=== PATIENT | male | born 1940 | race Caucasian/White ===

== ENCOUNTER → 2017-12-12 | Outpatient (CLI) | payer MEDICARE ==
[~2017-12-12] MED LIST: AMLO5TAB7 PO; ASPI-1181 PO; HYDR25TA PO; LISI40TA4 PO; METF500T7 PO; NAPR-1023 PO; SIMV20TA6 PO
== END | disposition home or self-care (01) ==
LOC: SHCH 12:17
PROVIDERS: ATTEND Internal Medicine Cardiovascular Disease
DX: I10 Essential (primary) hypertension (principal); Z72.89 Other problems related to lifestyle
CPT/HCPCS: 93306

== ENCOUNTER → 2017-12-19 | Outpatient (CLI) | payer MEDICARE ==
[~2017-12-19] VITALS: Ht 172.7 cm; Wt 90.7 kg
[~2017-12-19] MED LIST changes: +REGADENOSON 0.4 MG/5 ML PF SYG IVP SCH
== END | disposition home or self-care (01) ==
LOC: SHCH 08:55
PROVIDERS: ATTEND Internal Medicine Cardiovascular Disease
DX: I10 Essential (primary) hypertension (principal); R94.31 Abnormal electrocardiogram [ECG] [EKG]
CPT/HCPCS: 78452; 93017; 96374; A9500 ×2; J2785

== ENCOUNTER 2018-01-21 05:52 | Observation (INO) | payer MEDICARE ==
[2018-01-16 16:16] LABS: BASOPHILS % (AUTO) 0.8 % (0.0-5.0); EOSINOPHILS % (AUTO) 0.9 % (0.0-8.0); HEMATOCRIT 43.9 % (42-54); MEAN CORPUSCULAR HEMOGLOBIN 30.2 pg (27.0-33.0); MEAN CORPUSCULAR VOLUME 88.7 fL (79-99); MONOCYTES % (AUTO) 13.8 % (3.0-13.0); NEUTROPHILS % (AUTO) 55.5 % (40.0-77.0); NUCLEATED RED BLOOD CELLS 0.1 % (0.0-0.19); PLATELET COUNT (AUTO) 209 K/uL (130-400); RED BLOOD CELL COUNT(AUTO) 4.94 MIL/uL (4.50-6.20); RED CELL DISTRIBUTION WIDTH 14.2 % (11.0-15.5); WHITE BLOOD COUNT (AUTO) 7.8 K/uL (4.8-10.8)
[2018-01-16 16:16] LABS: APPEARANCE,URINE Clear (CLEAR); BILIRUBIN,URINE Negative (NEGATIVE); COLOR,URINE Yellow (YELLOW); GLUCOSE, URINE (UA) Negative (NEGATIVE); KETONES,URINE Negative (NEGATIVE); LEUKOCYTE ESTERASE ,URINE Negative (NEGATIVE); NITRATE,URINE Negative (NEGATIVE); OCCULT BLOOD,URINE Negative (NEGATIVE); PROTEIN,URINE Negative (NEGATIVE)
[2018-01-16 16:30] VITALS: BP 149/69
[2018-01-16 16:32] LABS: POTASSIUM 3.6 mmol/L (3.5-5.1)
[2018-01-16 16:35] LABS: INR 0.99 (0.85-1.15); PARTIAL THROMBOPLASTIN TIME 26.8 SEC (26.3-35.5); PROTHROMBIN TIME 10.4 SEC (9.6-11.6)
[2018-01-21] VITALS (18 sets, daily range): BP systolic 129–162; BP diastolic 56–72
[~2018-01-21] VITALS: Ht 175.3 cm; Wt 88.2 kg
[~2018-01-21 05:52] MED LIST changes: +CYAN500 PO; -NAPR-1023 PO; -REGADENOSON 0.4 MG/5 ML PF SYG IVP SCH; +SODIUM CHLORIDE 0.9% 500ML 500 ML IV SCH; +TYLENOL ER PO
[2018-01-21] MEDS ORDERED: SODIUM CHLORIDE 0.9% 1000ML 1,000 ML IV ONE (06:15)
[2018-01-21] MEDS ORDERED: IOHEXOL 350 MG/ML 100ML INFUS..BTL IV ONE ×2 (07:09→08:12)
[2018-01-21] MEDS ORDERED: SODIUM BICARB 50MEQ 50ML VIAL ONE (07:09)
[2018-01-21] MEDS ORDERED: NITROGLYCERIN 5 MG/ML 10 ML VIAL IV ONE (07:09)
[2018-01-21] MEDS ORDERED: LIDOCAINE HCL-MPF 2% 5ML VIAL ONE (07:09)
[2018-01-21] MEDS ORDERED: IOHEXOL-350 50ML VIAL IV ONE (07:09)
[2018-01-21] MEDS ORDERED: HEPARIN SODIUM 1000UNIT/ML 10ML VIAL ONE (07:59)
[2018-01-21] MEDS ORDERED: ATROPINE SULFATE 0.1 MG/ML 10 ML SYG IVP ONE (07:59)
[2018-01-21] MEDS ORDERED: CLOPIDOGREL BISULFATE 300 MG TAB ONE (09:22)
[2018-01-21] MEDS ORDERED: SODIUM CHLORIDE 0.9% 1000ML 1,000 ML IV SCH (09:49)
[2018-01-21] MEDS ORDERED: ACETAMINOPHEN-CODEINE 300/30MG TAB PO PRN (10:00)
[2018-01-21] MEDS ORDERED: GLUCAGON 1MG KIT 1 MG ML IM PRN (10:00)
[2018-01-21] MEDS ORDERED: ACETAMINOPHEN 325 MG TAB PO PRN (10:00)
[2018-01-21] MEDS ORDERED: DEXTROSE 50%-WATER 50 ML DISP.SYRIN IV PRN (10:00)
[2018-01-21] MEDS: INSULIN HUMULIN R 100 UNIT/ML 3ML SQ SCH ×3 (11:30→21:00)
[2018-01-22 02:48] VITALS: BP 138/66
[2018-01-22 04:00] VITALS: BP 150/66
[2018-01-22 04:02] LABS: HEMATOCRIT 42.1 % (42-54); MEAN CORPUSCULAR HEMOGLOBIN 30.3 pg (27.0-33.0); MEAN CORPUSCULAR HGB CONC 34.1 g/dL (32.0-36.0); MEAN CORPUSCULAR VOLUME 88.7 fL (79-99); NUCLEATED RED BLOOD CELLS 0.1 % (0.0-0.19); PLATELET COUNT (AUTO) 194 K/uL (130-400); RED BLOOD CELL COUNT(AUTO) 4.74 MIL/uL (4.50-6.20); RED CELL DISTRIBUTION WIDTH 13.9 % (11.0-15.5); WHITE BLOOD COUNT (AUTO) 8.5 K/uL (4.8-10.8)
[2018-01-22 04:04] LABS: HEMOGLOBIN A1C 6.6 % (4.0-6.0)
[2018-01-22 04:14] LABS: CREATININE 1.1 mg/dL (0.5-1.5); POTASSIUM 3.3 mmol/L (3.5-5.1)
[2018-01-22] MEDS ORDERED: MAGNESIUM 2GM PREMIX 50ML 50 ML IV PRN (05:45)
[2018-01-22] MEDS ORDERED: POTASSIUM CHLORIDE 20MEQ/100ML 100 ML IV PRN (05:45)
[2018-01-22] MEDS ORDERED: POTASSIUM CHLORIDE 10% ELIXIR 20 MEQ/15 ML UDCUP PO PRN (05:45)
[2018-01-22] MEDS ORDERED: LIDOCAINE HCL-MPF 1% 2ML VIAL IVP PRN (05:45)
[2018-01-22] MEDS: INSULIN HUMULIN R 100 UNIT/ML 3ML SQ SCH ×2 (07:30→11:30)
[2018-01-22] MEDS: POTASSIUM CHLORIDE 20 MEQ ERTAB PO PRN ×2 (07:39→13:21)
[2018-01-22 08:00] VITALS: BP 159/74
[2018-01-22] MEDS ORDERED: CLOP75TA14 PO (08:17)
[2018-01-22] MEDS ORDERED: CYANOCOBALAMIN (VITAMIN B-12) 1,000 MCG TABLET PO SCH (09:00)
[2018-01-22] MEDS ORDERED: HYDROCHLOROTHIAZIDE 25 MG TABLET PO SCH (09:00)
[2018-01-22] MEDS ORDERED: ASPIRIN 81 MG EC TAB PO SCH (09:00)
[2018-01-22] MEDS ORDERED: AMLODIPINE BESYLATE 5 MG TAB PO SCH (09:00)
[2018-01-22] MEDS ORDERED: PANTOPRAZOLE SODIUM 40 MG TABLET.DR PO SCH (09:00)
[2018-01-22] MEDS ORDERED: LISINOPRIL 40 MG TABLET PO SCH (09:00)
[2018-01-22] MEDS ORDERED: CLOPIDOGREL BISULFATE 75 MG TAB PO SCH (09:00)
[2018-01-22] MEDS ORDERED: SIMVASTATIN 20 MG TABLET PO SCH (09:00)
[2018-01-22 12:09] VITALS: BP 142/65
== END 2018-01-22 15:24 | disposition home or self-care (01) ==
LOC: DAH 05:52 → DAHIP 05:53 → DAH 05:53 → 2DH 14:38
PROVIDERS: ADMIT Internal Medicine Cardiovascular Disease; ATTEND Internal Medicine Cardiovascular Disease
DX: I25.110 Atherosclerotic heart disease of native coronary artery with unstable angina pectoris (principal); I10 Essential (primary) hypertension; E11.9 Type 2 diabetes mellitus without complications; E78.5 Hyperlipidemia, unspecified; M19.90 Unspecified osteoarthritis, unspecified site; F03.90 Unspecified dementia, unspecified severity, without behavioral disturbance, psychotic disturbance, mood disturbance, and anxiety; Z82.3 Family history of stroke; Z87.891 Personal history of nicotine dependence; Z79.01 Long term (current) use of anticoagulants
CPT/HCPCS: 36415 ×3; 71045; 80048 ×2; 80061; 81003; 82948 ×6; 83036; 83735; 85025; 85027; 85347 ×2; 85610; 85730; 93005; 93458; 96372; A4606; C1725; C1760; C1769 ×3; C1874 ×4; C1887 ×3; C1894 ×2; C9600 ×3; G0378 ×34; J1644 ×2; J1815; J3490 ×3; J7030 ×3; Q9965 ×2; Q9967 ×3; J0461

== ENCOUNTER 2018-01-26 07:38 | Observation (INO) | payer MEDICARE ==
[~2018-01-26] VITALS: Ht 172.7 cm; Wt 91.7 kg
[~2018-01-26 07:38] MED LIST changes: +CLOP75TA14 PO; -SODIUM CHLORIDE 0.9% 500ML 500 ML IV SCH
[2018-01-26 08:16] LABS: CREATININE 1.1 mg/dL (0.5-1.5); POTASSIUM 3.4 mmol/L (3.5-5.1)
[2018-01-26 08:22] LABS: ALBUMIN 3.5 g/dL (3.5-5.0); BILIRUBIN,TOTAL 0.5 mg/dL (0.2-1.0); TOTAL PROTEIN, SERUM 6.6 g/dL (6.0-8.3)
[2018-01-26 10:45] VITALS: BP 146/57
[2018-01-26 12:13] LABS: BASOPHILS % (AUTO) 0.8 % (0.0-5.0); EOSINOPHILS % (AUTO) 2.2 % (0.0-8.0); HEMATOCRIT 41.8 % (42-54); LYMPHOCYTES % (AUTO) 25.1 % (21.0-51.0); MEAN CORPUSCULAR HEMOGLOBIN 30.8 pg (27.0-33.0); MEAN CORPUSCULAR HGB CONC 34.6 g/dL (32.0-36.0); MEAN CORPUSCULAR VOLUME 89.1 fL (79-99); MONOCYTES % (AUTO) 10.5 % (3.0-13.0); NEUTROPHILS % (AUTO) 61.4 % (40.0-77.0); PLATELET COUNT (AUTO) 202 K/uL (130-400); RED BLOOD CELL COUNT(AUTO) 4.69 MIL/uL (4.50-6.20); RED CELL DISTRIBUTION WIDTH 13.8 % (11.0-15.5); WHITE BLOOD COUNT (AUTO) 6.8 K/uL (4.8-10.8)
[2018-01-26 15:14] LABS: CREATINE KINASE, TOTAL 32 U/L (21-232); MYOGLOBIN 46 ng/mL (10-92); TROPONIN I < 0.04 ng/mL (0.00-0.06)
[2018-01-26 15:37] VITALS: BP 164/63
[2018-01-26 20:00] VITALS: BP 149/70
[2018-01-26] MEDS ORDERED: ACETAMINOPHEN EXTENDED RELEASE 650 MG TABLET PO PRN (21:00)
[2018-01-26] MEDS: METFORMIN HCL 500 MG TAB.SR.24H PO SCH (21:46)
[2018-01-26 21:56] LABS: CREATINE KINASE, TOTAL 32 U/L (21-232); MYOGLOBIN 34 ng/mL (10-92); TROPONIN I < 0.04 ng/mL (0.00-0.06)
[2018-01-27] VITALS: BP 142/56
[2018-01-27 04:00] VITALS: BP 130/59
[2018-01-27 08:21] VITALS: BP 129/58
[2018-01-27] MEDS ORDERED: AMLODIPINE BESYLATE 5 MG TAB PO SCH (09:00)
[2018-01-27] MEDS ORDERED: HYDROCHLOROTHIAZIDE 25 MG TABLET PO SCH (09:00)
[2018-01-27] MEDS ORDERED: ASPIRIN 81MG TAB.CHEW PO SCH (09:00)
[2018-01-27] MEDS ORDERED: SIMVASTATIN 20 MG TABLET PO SCH (09:00)
[2018-01-27] MEDS ORDERED: CYANOCOBALAMIN (VITAMIN B-12) 1,000 MCG TABLET PO SCH (09:00)
[2018-01-27] MEDS ORDERED: CLOPIDOGREL BISULFATE 75 MG TAB PO SCH (09:00)
[2018-01-27] MEDS ORDERED: LISINOPRIL 40 MG TABLET PO SCH (09:00)
[2018-01-27] MEDS: METFORMIN HCL 500 MG TAB.SR.24H PO SCH (09:56)
[2018-01-27 12:16] VITALS: BP 135/65
== END 2018-01-27 12:35 | disposition home or self-care (01) ==
LOC: EDH 07:38 → 3CH 09:52
PROVIDERS: ADMIT Internal Medicine; ATTEND Internal Medicine
DX: R07.89 Other chest pain (principal); I25.10 Atherosclerotic heart disease of native coronary artery without angina pectoris; E11.9 Type 2 diabetes mellitus without complications; E78.5 Hyperlipidemia, unspecified; I10 Essential (primary) hypertension; Z87.891 Personal history of nicotine dependence; Z95.5 Presence of coronary angioplasty implant and graft
CPT/HCPCS: 36415; 71045; 80053; 82550 ×3; 82948 ×5; 83874 ×2; 83880; 84484 ×3; 85025; 93005; 99285; G0378 ×27

== ENCOUNTER 2018-04-22 07:37 | Inpatient (IN) | payer MEDICARE ==
[~2018-04-22] VITALS: Ht 172.7 cm; Wt 92.3 kg
[~2018-04-22 07:37] MED LIST changes: -AMLO5TAB7 PO; +AMLO5TAB9 PO
[2018-04-22 08:01] LABS: BASOPHILS % (AUTO) 0.7 % (0.0-5.0); EOSINOPHILS % (AUTO) 0.3 % (0.0-8.0); HEMATOCRIT 38.1 % (42-54); LYMPHOCYTES % (AUTO) 12.2 % (21.0-51.0); MEAN CORPUSCULAR HEMOGLOBIN 28.7 pg (27.0-33.0); MEAN CORPUSCULAR HGB CONC 32.4 g/dL (32.0-36.0); MEAN CORPUSCULAR VOLUME 88.7 fL (79-99); NEUTROPHILS % (AUTO) 75.8 % (40.0-77.0); PLATELET COUNT (AUTO) 218 K/uL (130-400); RED CELL DISTRIBUTION WIDTH 14.4 % (11.0-15.5); WHITE BLOOD COUNT (AUTO) 11.7 K/uL (4.8-10.8)
[2018-04-22 08:16] LABS: ALBUMIN 2.7 g/dL (3.5-5.0); BILIRUBIN,TOTAL 0.6 mg/dL (0.2-1.0); CREATININE 2.3 mg/dL (0.5-1.5); POTASSIUM 4.1 mmol/L (3.5-5.1); TOTAL PROTEIN, SERUM 5.9 g/dL (6.0-8.3)
[2018-04-22 08:24] LABS: B-TYPE NATRIURETIC PEPTIDE 41 pg/mL (0-100)
[2018-04-22] MEDS ORDERED: CALCIUM CHLORIDE 100 MG/ML 10 ML SYG IVP ONE (12:00)
[2018-04-22] MEDS ORDERED: EPINEPHRINE 0.1 MG/ML 10 ML SYG IVP ONE (12:00)
[2018-04-22 18:35] VITALS: BP 91/61
[2018-04-22] MEDS ORDERED: ACET-2782 PO (19:44)
[2018-04-22] MEDS ORDERED: CYAN50008 PO (19:44)
[2018-04-22] MEDS ORDERED: AMLO10TA7 PO (19:44)
[2018-04-22] MEDS ORDERED: ATOR40TA69 PO (19:44)
[2018-04-22] MEDS ORDERED: ACETAMINOPHEN EXTENDED RELEASE 650 MG TABLET PO PRN (20:15)
[2018-04-22] MEDS: 1/2 NORMAL SALINE 1,000 ML IV SCH (20:57)
[2018-04-22] MEDS ORDERED: METFORMIN HCL 500 MG TAB.SR.24H PO SCH (21:00)
[2018-04-22 23:00] VITALS: BP 109/47
[2018-04-23 01:14] LABS: APPEARANCE,URINE Cloudy (CLEAR); BILIRUBIN,URINE Negative (NEGATIVE); COLOR,URINE Yellow (YELLOW); GLUCOSE, URINE (UA) Negative (NEGATIVE); KETONES,URINE Negative (NEGATIVE); LEUKOCYTE ESTERASE ,URINE Moderate (NEGATIVE); NITRATE,URINE Negative (NEGATIVE); OCCULT BLOOD,URINE Large (NEGATIVE); PROTEIN,URINE Trace (NEGATIVE); UROBILINOGEN,URINE 0.2 mg/dL (0.2-1.0)
[2018-04-23 01:28] LABS: BACTERIA,URINE Few /HPF (None Seen); SQUAMOUS EPITHELIAL CELL,UR Rare /HPF (0-2)
[2018-04-23 01:29] LABS: AMORPHOUS SEDIMENT,UR Rare /LPF (None Seen); HYALINE CASTS, URINE 0-1 /LPF (0-1 /LPF)
[2018-04-23 03:00] VITALS: BP 100/47
[2018-04-23 05:28] LABS: HEMATOCRIT 34.9 % (42-54); MEAN CORPUSCULAR HEMOGLOBIN 29.5 pg (27.0-33.0); MEAN CORPUSCULAR HGB CONC 33.1 g/dL (32.0-36.0); MEAN CORPUSCULAR VOLUME 89.2 fL (79-99); NUCLEATED RED BLOOD CELLS 0.2 % (0.0-0.19); PLATELET COUNT (AUTO) 192 K/uL (130-400); RED BLOOD CELL COUNT(AUTO) 3.92 MIL/uL (4.50-6.20); RED CELL DISTRIBUTION WIDTH 14.5 % (11.0-15.5); WHITE BLOOD COUNT (AUTO) 8.9 K/uL (4.8-10.8)
[2018-04-23 05:56] LABS: CREATININE 2.6 mg/dL (0.5-1.5); MAGNESIUM 2.1 mg/dL (1.80-2.40); PHOSPHORUS 6.4 mg/dL (2.5-4.9); POTASSIUM 4.1 mmol/L (3.5-5.1); THYROID STIMULATING HORMONE 2.43 uIU/mL (0.36-3.74); URIC ACID 17.2 mg/dL (2.6-7.2)
[2018-04-23] MEDS ORDERED: GLUCAGON 1MG KIT 1 MG ML IM PRN (06:30)
[2018-04-23] MEDS ORDERED: DEXTROSE 50%-WATER 50 ML DISP.SYRIN IV PRN (06:30)
[2018-04-23] MEDS: 1/2 NORMAL SALINE 1,000 ML IV SCH ×3 (06:40→17:55)
[2018-04-23] MEDS: INSULIN HUMULIN R 100 UNIT/ML 3ML SQ SCH ×4 (06:41→21:00)
[2018-04-23 07:00] VITALS: BP 102/40
--- NOTE | 2018-04-23 07:50 | NUR ---
PATIENT IS ALERT AND AWAKE, DENIES ANY PAIN UPON ASSESSMENT. POC DISCUSSED WITH PATIENT, SAFETY AND FALL PREVENTION REVIEWED.
[2018-04-23] MEDS ORDERED: NON-FORMULARY MEDICATION 1 EACH (Amlodipine Besylate 10 MG) PO SCH (09:00)
[2018-04-23] MEDS ORDERED: ENOXAPARIN SODIUM 40 MG/0.4 ML SYRINGE SQ SCH (09:00)
[2018-04-23] MEDS: ASPIRIN 81 MG EC TAB PO SCH (09:04)
[2018-04-23] MEDS: CYANOCOBALAMIN (VITAMIN B-12) 1,000 MCG TABLET PO SCH (09:04)
[2018-04-23] MEDS: FOLIC ACID/VITAMIN B COMP W-C 1 MG CAPSULE PO SCH (09:05)
[2018-04-23] MEDS: ATORVASTATIN CALCIUM 40 MG TABLET PO SCH (09:05)
[2018-04-23] MEDS: CLOPIDOGREL BISULFATE 75 MG TAB PO SCH (09:05)
[2018-04-23] MEDS ORDERED: SODIUM CHLORIDE 0.9% 10 ML VIAL IVP PRN (10:00)
--- NOTE | 2018-04-23 10:43 | NUR ---
DR SOLER AND THE WAITER/WAITRESS INFORMAL CAME IN TO SEE THE PATIENT IN RESPONSE TO THE CONSULT. NO NEW ORDERS WERE GIVEN.
[2018-04-23 11:00] VITALS: BP 88/49
[2018-04-23 12:50] VITALS: BP 92/51
--- NOTE | 2018-04-23 12:50 | NUR ---
HYPOTENSIVE EPISODE RECORDED BP 88/49. LOWER EXTREMITIES WERE ELEVATED ABOVE HEART LEVEL AND BP RECHECK WAS 92/51 WITH HR 70BPM.
--- NOTE | 2018-04-23 12:55 | NUR ---
DCP CM met with pt discussed dc plans. Pt is independent prior to admissoin, lives at home with spouse. Pt has a cpap and shower chair. Denies any other equipments/services. Pt feels safe to go back home, still drives, spouse able to assist with transportation and needs as necessary. DC plan to home once stable. CM to cont to follow up. Addendum: 04/23/18 at 1257 by REYNA RUSSELL LVN CM Amended: Links added.
--- NOTE | 2018-04-23 15:20 | NUR ---
Nutrition intervention: Nutrition notification as trigger. Pt admitted for dehydration, prerenal azotemia. Pt currently on renal non dialysis diet with poor to fair po intake. Pt states he is forcing himself to eat however cannot get himself to eat more than liquids and soft foods. Encouraged pt to drink nutrition supplementation, pt agrees to nepro BID. Lbm 04/23. Alb 2.7. BMI 30.0 Recommendations: Continue current diet therapy. Add Nepro BID for added caloric and protein intake Addendum: 04/23/18 at [address] Amended: Links added.
[2018-04-23 16:00] VITALS: BP 101/54
[2018-04-23 20:00] VITALS: BP 112/60
[2018-04-24] VITALS (24 sets, daily range): BP systolic 76–145; BP diastolic 32–54
[2018-04-24] MEDS: 1/2 NORMAL SALINE 1,000 ML IV SCH ×3 (00:38→23:01)
[2018-04-24 05:46] LABS: HEMATOCRIT 34.9 % (42-54); MEAN CORPUSCULAR HEMOGLOBIN 29.4 pg (27.0-33.0); MEAN CORPUSCULAR HGB CONC 33.5 g/dL (32.0-36.0); NUCLEATED RED BLOOD CELLS 0.1 % (0.0-0.19); PLATELET COUNT (AUTO) 183 K/uL (130-400); RED BLOOD CELL COUNT(AUTO) 3.97 MIL/uL (4.50-6.20); RED CELL DISTRIBUTION WIDTH 14.5 % (11.0-15.5); WHITE BLOOD COUNT (AUTO) 8.6 K/uL (4.8-10.8)
[2018-04-24 06:07] LABS: ALBUMIN 2.5 g/dL (3.5-5.0); BILIRUBIN,TOTAL 0.5 mg/dL (0.2-1.0); CREATININE 2.7 mg/dL (0.5-1.5); POTASSIUM 3.9 mmol/L (3.5-5.1); TOTAL PROTEIN, SERUM 5.3 g/dL (6.0-8.3)
[2018-04-24] MEDS: INSULIN HUMULIN R 100 UNIT/ML 3ML SQ SCH ×4 (06:18→20:15)
[2018-04-24] MEDS ORDERED: HYDROCODONE/ACETAMINOPHEN 5/325 MG TAB ONE (06:48)
[2018-04-24] MEDS: HYDROCODONE/ACETAMINOPHEN 5/325 MG TAB PO PRN ×2 (07:04→15:27)
--- NOTE | 2018-04-24 10:16 | NUR ---
NOTIFIED RONDA BRENNER OF 2DECHO DONE. REPORTED BP LYING DOWN=92/52 MANUALLY. ORDERS TO TRANSFER TO UNIT.
[2018-04-24] MEDS: ATORVASTATIN CALCIUM 40 MG TABLET PO SCH (10:34)
[2018-04-24] MEDS: FOLIC ACID/VITAMIN B COMP W-C 1 MG CAPSULE PO SCH (10:34)
[2018-04-24] MEDS: CYANOCOBALAMIN (VITAMIN B-12) 1,000 MCG TABLET PO SCH (10:34)
[2018-04-24] MEDS: ASPIRIN 81 MG EC TAB PO SCH (10:34)
[2018-04-24] MEDS: CLOPIDOGREL BISULFATE 75 MG TAB PO SCH (10:34)
[2018-04-24] MEDS ORDERED: BACITRACIN 50,000 UNIT VIAL ONE (11:49)
[2018-04-24] MEDS ORDERED: KETAMINE HCL 100 MG/ML 5ML VIAL IJ ONE (12:11)
[2018-04-24] MEDS ORDERED: SODIUM CHLORIDE 0.9% 1000ML 1,000 ML IV ONE (12:23)
[2018-04-24] MEDS: CEFAZOLIN SODIUM 1 GM VIAL ONE ×2 (12:33→12:35)
[2018-04-24] MEDS ORDERED: SUCCINYLCHOLINE 200MG/10ML SYR ONE (12:39)
[2018-04-24] MEDS ORDERED: ROCURONIUM 10MG/1ML SYR 10 MG/ML ML ONE (12:52)
[2018-04-24] MEDS ORDERED: MIDAZOLAM HCL 1 MG/ML 2ML VIAL ONE (12:52)
[2018-04-24] MEDS ORDERED: FENTANYL CITRATE PF 50 MCG/1 ML 2ML VIAL ONE (12:52)
[2018-04-24] MEDS ORDERED: GLYCOPYRROLATE 1 MG/5 ML SYRINGE ONE ×2 (13:08→13:53)
[2018-04-24] MEDS ORDERED: NEOSTIGMINE 5MG/5ML SYR IV ONE (13:08)
[2018-04-24] MEDS ORDERED: DIGOXIN 250 MCG/ML 2ML AMP ONE (13:23)
[2018-04-24 13:31] LABS: ABG BASE EXCESS -10.7 mmol/L (-2.0-3.0); ABG HCO3 18.9 mmol/L (21.0-28.0); ABG OXYGEN SATURATION 91.1 % (95.0-99.0); ABG PCO2 60 mmHg (35-48)
[2018-04-24] MEDS ORDERED: AMIODARONE HCL 50 MG/ML 3 ML VIAL ONE (13:40)
[2018-04-24] MEDS ORDERED: ATROPINE SULFATE 0.1 MG/ML 10 ML SYG IVP ONE (13:51)
[2018-04-24] MEDS ORDERED: AMIODARONE HCL 900 MG in DEXTROSE 5%-WATER 500 ML IV SCH (14:00)
[2018-04-24] MEDS ORDERED: MEPERIDINE-PF 50 MG/ML SYG ONE (14:14)
[2018-04-24 16:11] LABS: PH, BODY FLUID 8
[2018-04-24 16:22] LABS: AMYLASE,BODY FLUID 6 U/L; LIPASE,BODY FLUID 56 U/L
[2018-04-24 17:02] LABS: APPEARANCE BODY FLUID CLOUDY (CLEAR); COLOR,BODY FLUID RED (LT YELLOW); SPECIMENTYPE,BODY FLUID PERICARDIAL; TOTAL VOLUME,BODY FLUID 13 mL
[2018-04-24 17:03] LABS: BODY FLUID RBC 121000 /cu. mm.; BODY FLUID WBC 619 /cu. mm.
[2018-04-24 17:08] LABS: BF LYMPHOCYTE 78 %; BF OTHER CELLS 2
--- NOTE | 2018-04-24 20:00 | NUR ---
PM assessment. Bedside report received by JEWELS Bansal. Plan of care discussed with patient. Patient is alert awake and oriented x4. Reports no complaint. Patient is resting comfortably in bed. Pericardial window dressing intact and chest tube to [id number] continues suction without any abnormalities. Full head to toe assessment done-Refer to chart for assessment. Will continue to monitor patient closely.
--- NOTE | 2018-04-24 22:15 | NUR ---
Dr. Simmons called. at 2200 patient blood pressure decreased to systolic 70's-80's. while this was occurring patient started to complain of Chest pain radiating to right shoulder and jaw line. EKG was done and cardiac enzymes as well as other lab were order. Dr. Simmons was updated and ordered Yohan-synephrine drip to be started. all lab result were relayed to Dr. simmons. no further orders were received, and will se patient AM. Will continue to monitor patient closely.
[2018-04-24 22:38] LABS: BASOPHILS % (AUTO) 0.4 % (0.0-5.0); EOSINOPHILS % (AUTO) 0.1 % (0.0-8.0); HEMATOCRIT 34.6 % (42-54); MEAN CORPUSCULAR HEMOGLOBIN 29.6 pg (27.0-33.0); MEAN CORPUSCULAR HGB CONC 33.8 g/dL (32.0-36.0); MEAN CORPUSCULAR VOLUME 87.6 fL (79-99); MONOCYTES % (AUTO) 10.3 % (3.0-13.0); NEUTROPHILS % (AUTO) 83.2 % (40.0-77.0); PLATELET COUNT (AUTO) 176 K/uL (130-400); RED BLOOD CELL COUNT(AUTO) 3.95 MIL/uL (4.50-6.20); RED CELL DISTRIBUTION WIDTH 14.4 % (11.0-15.5); WHITE BLOOD COUNT (AUTO) 10.7 K/uL (4.8-10.8)
[2018-04-24] MEDS ORDERED: PHENYLEPHRINE HCL 10 MG/ML 1ML VIAL IV ONE (22:38)
[2018-04-24] MEDS ORDERED: PHENYLEPHRINE HCL 10 MG in SODIUM CHLORIDE 0.9% 250 ML IV SCH (22:45)
[2018-04-24 22:52] LABS: CREATININE 2.6 mg/dL (0.5-1.5); MAGNESIUM 1.8 mg/dL (1.80-2.40); POTASSIUM 4.4 mmol/L (3.5-5.1)
--- NOTE | 2018-04-24 23:00 | NUR ---
Dr. Greenfield called. Dr. Greenfield was updated on patient current condition and elevated troponin results as well as EKG. No orders were received. Will continue to monitor patient closely.
[2018-04-24 23:01] LABS: TROPONIN I 0.15 ng/mL (0.00-0.06)
[2018-04-25] VITALS (24 sets, daily range): BP systolic 95–132; BP diastolic 35–63
[2018-04-25] MEDS ORDERED: PHENYLEPHRINE HCL 10 MG/ML 1ML VIAL IV ONE ×2 (01:26→04:20)
[2018-04-25] MEDS ORDERED: SODIUM CHLORIDE 0.9% 250 ML IV ONE ×2 (01:28→04:21)
[2018-04-25] MEDS ORDERED: NITROGLYCERIN 1GM/1 INCH PACKET TD ONE (01:36)
[2018-04-25] MEDS: HYDROCODONE/ACETAMINOPHEN 5/325 MG TAB PO PRN ×3 (01:54→14:43)
[2018-04-25] MEDS: NITROGLYCERIN 1GM/1 INCH PACKET TD SCH ×2 (02:00→19:34)
[2018-04-25 03:54] LABS: HEMATOCRIT 34.5 % (42-54); MEAN CORPUSCULAR HEMOGLOBIN 30.5 pg (27.0-33.0); MEAN CORPUSCULAR VOLUME 87.3 fL (79-99); PLATELET COUNT (AUTO) 226 K/uL (130-400); RED BLOOD CELL COUNT(AUTO) 3.96 MIL/uL (4.50-6.20); RED CELL DISTRIBUTION WIDTH 14.2 % (11.0-15.5); WHITE BLOOD COUNT (AUTO) 9.7 K/uL (4.8-10.8)
[2018-04-25 04:08] LABS: CREATININE 2.5 mg/dL (0.5-1.5); POTASSIUM 4.3 mmol/L (3.5-5.1)
[2018-04-25 04:59] LABS: BAND NEUTROPHILS % (MANUAL) 9 % (0-2); LYMPHOCYTES % (MANUAL) 5 % (22-44); MAN.DIFF COMMENT-IMPRESSION MANUAL DIFFERENTIAL; MONOCYTES % (MANUAL) 9 % (2-9); REACTIVE LYMPHOCYTES 4 % (0-0); SEGMENTED NEUTROPHILS % 73 % (40-70)
[2018-04-25 05:47] LABS: TROPONIN I 0.1 ng/mL (0.00-0.06)
[2018-04-25] MEDS ORDERED: MAGNESIUM 2GM PREMIX 50ML 50 ML IV ONE (05:49)
[2018-04-25] MEDS ORDERED: MAGNESIUM 2GM PREMIX 50ML 50 ML IV PRN (06:00)
[2018-04-25] MEDS: INSULIN HUMULIN R 100 UNIT/ML 3ML SQ SCH ×4 (07:13→21:00)
[2018-04-25] MEDS: ATORVASTATIN CALCIUM 40 MG TABLET PO SCH (08:50)
[2018-04-25] MEDS: CYANOCOBALAMIN (VITAMIN B-12) 1,000 MCG TABLET PO SCH (08:50)
[2018-04-25] MEDS: FOLIC ACID/VITAMIN B COMP W-C 1 MG CAPSULE PO SCH (08:50)
[2018-04-25] MEDS: ASPIRIN 81 MG EC TAB PO SCH (08:50)
[2018-04-25] MEDS: CLOPIDOGREL BISULFATE 75 MG TAB PO SCH (08:50)
[2018-04-25] MEDS: 1/2 NORMAL SALINE 1,000 ML IV SCH ×2 (08:57→17:48)
--- NOTE | 2018-04-25 20:00 | NUR ---
Assumed care of patient after report received earlier. Awake. Alert and oriented.Denies pain, sob. Initial assessment completed. Call light and needed items placed readily at hand. Encouraged to call prn.
[2018-04-26] VITALS (59 sets, daily range): BP systolic 86–148; BP diastolic 38–84
[2018-04-26] MEDS ORDERED: PHENYLEPHRINE HCL 10 MG/ML 1ML VIAL IV ONE (00:07)
[2018-04-26] MEDS ORDERED: SODIUM CHLORIDE 0.9% 250 ML IV ONE (00:08)
[2018-04-26] MEDS: 1/2 NORMAL SALINE 1,000 ML IV SCH (04:35)
[2018-04-26 05:59] LABS: EOSINOPHILS % (AUTO) 1.2 % (0.0-8.0); HEMATOCRIT 33.8 % (42-54); LYMPHOCYTES % (AUTO) 14.7 % (21.0-51.0); MEAN CORPUSCULAR HEMOGLOBIN 29.2 pg (27.0-33.0); MEAN CORPUSCULAR HGB CONC 33.2 g/dL (32.0-36.0); MEAN CORPUSCULAR VOLUME 87.9 fL (79-99); MONOCYTES % (AUTO) 13.5 % (3.0-13.0); NEUTROPHILS % (AUTO) 69.6 % (40.0-77.0); NUCLEATED RED BLOOD CELLS 0.1 % (0.0-0.19); PLATELET COUNT (AUTO) 170 K/uL (130-400); RED BLOOD CELL COUNT(AUTO) 3.85 MIL/uL (4.50-6.20); RED CELL DISTRIBUTION WIDTH 14.8 % (11.0-15.5); WHITE BLOOD COUNT (AUTO) 7.8 K/uL (4.8-10.8)
[2018-04-26 06:12] LABS: CREATININE 1.6 mg/dL (0.5-1.5); POTASSIUM 3.8 mmol/L (3.5-5.1)
[2018-04-26] MEDS: INSULIN HUMULIN R 100 UNIT/ML 3ML SQ SCH ×4 (06:30→21:00)
[2018-04-26] MEDS: ASPIRIN 81 MG EC TAB PO SCH (09:29)
[2018-04-26] MEDS: ATORVASTATIN CALCIUM 40 MG TABLET PO SCH (09:29)
[2018-04-26] MEDS: FOLIC ACID/VITAMIN B COMP W-C 1 MG CAPSULE PO SCH (09:29)
[2018-04-26] MEDS: CLOPIDOGREL BISULFATE 75 MG TAB PO SCH (09:29)
[2018-04-26] MEDS: CYANOCOBALAMIN (VITAMIN B-12) 1,000 MCG TABLET PO SCH (09:30)
[2018-04-26] MEDS: SODIUM CHLORIDE 0.9% 1000ML 1,000 ML IV SCH (10:12)
--- NOTE | 2018-04-26 13:32 | NUR ---
Nutrition Follow-up: Pt. on 75gm CCD Renal Non dialysis diet. Pt. reports poor p.o. intake due to no appetite; states has to force himself to eat. Noted order for Nepro supp. but pt. reports has not received the supplement. Pt. states only willing to try supp. if it is chocolate flavor; refusing Nepro supp due to it only comes in Vanilla flavor. Labs reviewed(Alb 2.5, BUN 59, Creat 1.6, GFR 45). LBM: 04/23/18. SR-20, edematous/chest incision. Pt. with 2+ gen. pitting edema. Recommendations: 1) Continue current diet. 2) Rec. chilled Chocolate Glucerna supp. QD with dinner meal. 3) May consider appetite stimulant Megace. 4) Continue to monitor pt's nutritional status. 5) RD to f/u in 1-3 days. Addendum: 04/26/18 at [address] Amended: Links added.
--- NOTE | 2018-04-26 14:30 | NUR ---
patient moved to chair; tolerated well; slightly fatigued from movement but resting comfortably with no complaints at this time
[2018-04-26] MEDS ORDERED: DOPAMINE 800MG/D5 250ML 250 ML IV SCH (17:15)
[2018-04-26] MEDS ORDERED: ALBUMIN (HUMAN) 25% 50 ML IV SCH (17:15)
--- NOTE | 2018-04-26 17:45 | NUR ---
chest tube removed at this time; no output today or last night; vaseline and gauze dressing applied; patient resting comfortably in bed at this time; no complaints noted. will continue to asses site
--- NOTE | 2018-04-26 18:15 | NUR ---
Dr Shell at bedside again, made aware of oozing from chest tube site; no further orders given
[2018-04-26] MEDS: MAG HYDROX/AL HYDROX/SIMETH ES 30 ML SUSP UDCUP PO PRN (22:41)
[2018-04-27] VITALS (19 sets, daily range): BP systolic 103–141; BP diastolic 46–87
[2018-04-27] MEDS: NITROGLYCERIN 1GM/1 INCH PACKET TD SCH (02:00)
[2018-04-27] MEDS: SODIUM CHLORIDE 0.9% 1000ML 1,000 ML IV SCH (04:21)
[2018-04-27 06:37] LABS: HEMATOCRIT 34.3 % (42-54); MEAN CORPUSCULAR HEMOGLOBIN 30.6 pg (27.0-33.0); MEAN CORPUSCULAR VOLUME 87.4 fL (79-99); PLATELET COUNT (AUTO) 204 K/uL (130-400); RED BLOOD CELL COUNT(AUTO) 3.93 MIL/uL (4.50-6.20); RED CELL DISTRIBUTION WIDTH 14.5 % (11.0-15.5); WHITE BLOOD COUNT (AUTO) 7.9 K/uL (4.8-10.8)
[2018-04-27 07:03] LABS: BAND NEUTROPHILS % (MANUAL) 5 % (0-2); CREATININE 1.2 mg/dL (0.5-1.5); LYMPHOCYTES % (MANUAL) 7 % (22-44); MAN.DIFF COMMENT-IMPRESSION MANUAL DIFFERENTIAL; METAMYELOCYTES % 1 % (0-0); MONOCYTES % (MANUAL) 5 % (2-9); POTASSIUM 4.1 mmol/L (3.5-5.1); SEGMENTED NEUTROPHILS % 82 % (40-70)
[2018-04-27 07:04] LABS: PLATELET MORPHOLOGY COMMENT ADEQUATE
[2018-04-27] MEDS: INSULIN HUMULIN R 100 UNIT/ML 3ML SQ SCH ×4 (07:30→21:00)
[2018-04-27] MEDS: CYANOCOBALAMIN (VITAMIN B-12) 1,000 MCG TABLET PO SCH (08:51)
[2018-04-27] MEDS: ATORVASTATIN CALCIUM 40 MG TABLET PO SCH (08:51)
[2018-04-27] MEDS: CLOPIDOGREL BISULFATE 75 MG TAB PO SCH (08:51)
[2018-04-27] MEDS: ASPIRIN 81 MG EC TAB PO SCH (08:51)
[2018-04-27] MEDS: FOLIC ACID/VITAMIN B COMP W-C 1 MG CAPSULE PO SCH (08:51)
[2018-04-27] MEDS: FUROSEMIDE 10 MG/ML 4ML VIAL IV SCH (09:29)
--- NOTE | 2018-04-27 17:42 | NUR ---
DC PLAN UPDATE PT STILL FEELS SAFE TO GO HOME- BUT WILL CONSIDER SNF IF NEEDED. WILL GIVE FACESHEET TO [facility] ON [address] FOR POSS PROVIDER SERVICES, SPOUSE ALSO HAS MOBILITY /STRENGTH ISSUES. WILL LEAVE UPDATE FOR CM.
[2018-04-28] MEDS: NITROGLYCERIN 1GM/1 INCH PACKET TD SCH ×2 (01:44→06:44)
[2018-04-28 03:21] VITALS: BP 113/55
--- NOTE | 2018-04-28 04:15 | NUR ---
RHYTHM CHANGE NOTIFIED BY DIE CAST DIE MAKER A-FIB HR 120'S TO 150'S LASTING APPROXIMATELY 20 TO 30 SECONDS THEN SINUS RHYTHM HR 70'S. PATIENT SLEEPING. ASYMPTOMATIC. BP 107/54. WILL CONTINUE TO MONITOR.
--- NOTE | 2018-04-28 04:45 | NUR ---
NOTIFIED BY ADJUNCT PHLEBOTOMY INSTRUCTOR A-FIB HR 120'S TO 150'S LASTING APPROXIMATELY 20 SECONDS THEN SINUS RHYTHM HR 70'S. PATIENT ASYMPTOMATIC. PAGED DR. PÉREZ.
--- NOTE | 2018-04-28 05:15 | NUR ---
PAGED DR. COOK. REPORTED PATIENT STATUS. SEE ORDERS.
[2018-04-28] MEDS: INSULIN HUMULIN R 100 UNIT/ML 3ML SQ SCH ×4 (05:58→21:00)
[2018-04-28 06:22] LABS: CREATININE 1.3 mg/dL (0.5-1.5); MAGNESIUM 2.5 mg/dL (1.80-2.40); POTASSIUM 4.5 mmol/L (3.5-5.1)
[2018-04-28] MEDS: FUROSEMIDE 10 MG/ML 4ML VIAL IV SCH ×2 (06:43→09:00)
[2018-04-28 07:49] VITALS: BP 108/43
[2018-04-28] MEDS: FOLIC ACID/VITAMIN B COMP W-C 1 MG CAPSULE PO SCH (10:04)
[2018-04-28] MEDS: CLOPIDOGREL BISULFATE 75 MG TAB PO SCH (10:04)
[2018-04-28] MEDS: ATORVASTATIN CALCIUM 40 MG TABLET PO SCH (10:05)
[2018-04-28] MEDS: CYANOCOBALAMIN (VITAMIN B-12) 1,000 MCG TABLET PO SCH (10:05)
[2018-04-28] MEDS: ASPIRIN 81 MG EC TAB PO SCH (10:05)
[2018-04-28] MEDS: ENOXAPARIN SODIUM 30 MG/0.3 ML SQ SCH (10:06)
[2018-04-28] MEDS ORDERED: AMIODARONE HCL 900 MG in DEXTROSE 5%-WATER 500 ML IV SCH (10:15)
[2018-04-28] MEDS ORDERED: AMIODARONE HCL 150 MG in DEXTROSE 5%-WATER 100 ML IV SCH (10:15)
[2018-04-28 11:36] VITALS: BP 106/56
[2018-04-28 16:30] VITALS: BP 123/61
[2018-04-28 20:22] VITALS: BP 110/53
[2018-04-28 23:35] VITALS: BP 96/55
[2018-04-29 03:50] LABS: HEMATOCRIT 35.2 % (42-54); MEAN CORPUSCULAR HEMOGLOBIN 29.9 pg (27.0-33.0); MEAN CORPUSCULAR HGB CONC 34.1 g/dL (32.0-36.0); MEAN CORPUSCULAR VOLUME 87.7 fL (79-99); PLATELET COUNT (AUTO) 226 K/uL (130-400); RED BLOOD CELL COUNT(AUTO) 4.01 MIL/uL (4.50-6.20); RED CELL DISTRIBUTION WIDTH 14.5 % (11.0-15.5); WHITE BLOOD COUNT (AUTO) 9.3 K/uL (4.8-10.8)
[2018-04-29 03:58] LABS: CREATININE 1.6 mg/dL (0.5-1.5); POTASSIUM 4.4 mmol/L (3.5-5.1)
[2018-04-29 04:03] VITALS: BP 108/55
--- NOTE | 2018-04-29 06:11 | NUR ---
Patient assessment Patient has been SR 77-80 throughout the night. Amio drip at 16.6 ml/hr. IV site CDI, no complications. Tolerating Drip well. Patient states he is always Sob. On 3L NC with 02 sats at 100%. 2+ BLE. Bases diminished. Dr Harley at bedside. Verbal orders -lactulose until BM and morning labs.
[2018-04-29] MEDS ORDERED: LACTULOSE 20 GM/30 ML UDCUP PO PRN (06:15)
[2018-04-29] MEDS: FUROSEMIDE 10 MG/ML 4ML VIAL IV SCH ×2 (06:30→08:14)
[2018-04-29] MEDS: NITROGLYCERIN 1GM/1 INCH PACKET TD SCH (06:31)
[2018-04-29] MEDS: INSULIN HUMULIN R 100 UNIT/ML 3ML SQ SCH ×4 (07:30→21:00)
[2018-04-29 07:32] VITALS: BP 106/49
[2018-04-29] MEDS ORDERED: FUROSEMIDE 40 MG TABLET PO SCH (09:00)
[2018-04-29] MEDS: ATORVASTATIN CALCIUM 40 MG TABLET PO SCH (09:23)
[2018-04-29] MEDS: FOLIC ACID/VITAMIN B COMP W-C 1 MG CAPSULE PO SCH (09:23)
[2018-04-29] MEDS: CLOPIDOGREL BISULFATE 75 MG TAB PO SCH (09:23)
[2018-04-29] MEDS: ASPIRIN 81 MG EC TAB PO SCH (09:24)
[2018-04-29] MEDS: CYANOCOBALAMIN (VITAMIN B-12) 1,000 MCG TABLET PO SCH (09:24)
[2018-04-29] MEDS: ENOXAPARIN SODIUM 30 MG/0.3 ML SQ SCH (09:25)
[2018-04-29 11:51] VITALS: BP 116/55
--- NOTE | 2018-04-29 14:44 | NUR ---
RD Follow-Up Note Patient tolerating Renal nondialysis, 75gm CCD with Glucerna at dinner time, with no report of GI distress and total intake at 75-100%. Patient LBM 04/27/18. Patient monitored labs: BUN 44, Cr 1.6, GFR 45, Ca 7.7. RD to continue to monitor PO intake and nutritional labs. Please notify RD as nutritional concerns arise. Thank you. Addendum: 04/29/18 at [address] Amended: Links added.
[2018-04-29 17:07] VITALS: BP 114/56
[2018-04-29 19:23] VITALS: BP 118/59
[2018-04-29] MEDS ORDERED: AMIODARONE HCL 200 MG TABLET PO SCH (21:00)
[2018-04-29 23:31] VITALS: BP 107/51
[2018-04-30 03:47] LABS: BASOPHILS % (AUTO) 0.4 % (0.0-5.0); EOSINOPHILS % (AUTO) 0.7 % (0.0-8.0); HEMATOCRIT 36.2 % (42-54); LYMPHOCYTES % (AUTO) 7.4 % (21.0-51.0); MEAN CORPUSCULAR HEMOGLOBIN 29.5 pg (27.0-33.0); MEAN CORPUSCULAR HGB CONC 33.6 g/dL (32.0-36.0); MEAN CORPUSCULAR VOLUME 87.7 fL (79-99); MONOCYTES % (AUTO) 11.3 % (3.0-13.0); NEUTROPHILS % (AUTO) 80.2 % (40.0-77.0); NUCLEATED RED BLOOD CELLS 0.1 % (0.0-0.19); PLATELET COUNT (AUTO) 204 K/uL (130-400); RED BLOOD CELL COUNT(AUTO) 4.12 MIL/uL (4.50-6.20); RED CELL DISTRIBUTION WIDTH 14.6 % (11.0-15.5); WHITE BLOOD COUNT (AUTO) 7.7 K/uL (4.8-10.8)
[2018-04-30 04:05] LABS: CREATININE 1.9 mg/dL (0.5-1.5); POTASSIUM 4.5 mmol/L (3.5-5.1)
[2018-04-30 04:28] VITALS: BP 100/46
[2018-04-30] MEDS: INSULIN HUMULIN R 100 UNIT/ML 3ML SQ SCH ×4 (06:43→22:57)
[2018-04-30] MEDS ORDERED: FUROSEMIDE 10 MG/ML 4ML VIAL IV SCH ×2 (06:45→17:00)
[2018-04-30 07:09] VITALS: BP 112/45
[2018-04-30] MEDS: CLOPIDOGREL BISULFATE 75 MG TAB PO SCH (08:49)
[2018-04-30] MEDS: CYANOCOBALAMIN (VITAMIN B-12) 1,000 MCG TABLET PO SCH (08:49)
[2018-04-30] MEDS: AMIODARONE HCL 200 MG TABLET PO SCH (08:49)
[2018-04-30] MEDS: ATORVASTATIN CALCIUM 40 MG TABLET PO SCH (08:50)
[2018-04-30] MEDS: ASPIRIN 81 MG EC TAB PO SCH (08:50)
[2018-04-30] MEDS: FOLIC ACID/VITAMIN B COMP W-C 1 MG CAPSULE PO SCH (08:50)
[2018-04-30] MEDS: ENOXAPARIN SODIUM 30 MG/0.3 ML SQ SCH (09:01)
[2018-04-30 10:49] VITALS: BP 99/47
--- NOTE | 2018-04-30 15:19 | NUR ---
DC Plan Placed call to Dr. Harley to receive update on plan. Pending call back. CM to continue to follow. CD
[2018-04-30 16:21] VITALS: BP 103/55
[2018-04-30 19:41] VITALS: BP 105/52
[2018-04-30] MEDS: HYDROCODONE/ACETAMINOPHEN 5/325 MG TAB PO PRN (23:06)
[2018-04-30 23:58] VITALS: BP 105/52
[2018-05-01 03:25] VITALS: BP 101/50
[2018-05-01 03:54] LABS: BASOPHILS % (AUTO) 1.2 % (0.0-5.0); EOSINOPHILS % (AUTO) 0.8 % (0.0-8.0); HEMATOCRIT 35.8 % (42-54); LYMPHOCYTES % (AUTO) 8.4 % (21.0-51.0); MEAN CORPUSCULAR HEMOGLOBIN 30.3 pg (27.0-33.0); MEAN CORPUSCULAR HGB CONC 34.7 g/dL (32.0-36.0); MEAN CORPUSCULAR VOLUME 87.3 fL (79-99); NEUTROPHILS % (AUTO) 77.6 % (40.0-77.0); PLATELET COUNT (AUTO) 227 K/uL (130-400); RED CELL DISTRIBUTION WIDTH 14.5 % (11.0-15.5); WHITE BLOOD COUNT (AUTO) 7.8 K/uL (4.8-10.8)
[2018-05-01 04:13] LABS: CREATININE 2.1 mg/dL (0.5-1.5); POTASSIUM 4.3 mmol/L (3.5-5.1)
[2018-05-01] MEDS: INSULIN HUMULIN R 100 UNIT/ML 3ML SQ SCH ×4 (06:04→20:52)
[2018-05-01 08:00] VITALS: BP 110/52
[2018-05-01] MEDS: FOLIC ACID/VITAMIN B COMP W-C 1 MG CAPSULE PO SCH (09:16)
[2018-05-01] MEDS: AMIODARONE HCL 200 MG TABLET PO SCH (09:17)
[2018-05-01] MEDS: ATORVASTATIN CALCIUM 40 MG TABLET PO SCH (09:17)
[2018-05-01] MEDS: CLOPIDOGREL BISULFATE 75 MG TAB PO SCH (09:17)
[2018-05-01] MEDS: ASPIRIN 81 MG EC TAB PO SCH (09:17)
[2018-05-01] MEDS: ENOXAPARIN SODIUM 30 MG/0.3 ML SQ SCH (09:17)
[2018-05-01] MEDS: CYANOCOBALAMIN (VITAMIN B-12) 1,000 MCG TABLET PO SCH (09:18)
[2018-05-01 11:27] VITALS: BP 106/51
--- NOTE | 2018-05-01 13:25 | NUR ---
URINARY RETENTION NO URINE OUTPUT REPORTED BY PT THIS AM. PT DENIES PEEING SINCE THIS MORNING. DENIES URGE TO PEE. MD TO BE NOTIFIED.
--- NOTE | 2018-05-01 13:42 | NUR ---
URINARY RETENTION DR JD TORRES. NOTIFIED OF PT'S URINARY RETENTION. ORDER FOR BLADDER SCAN RECEIVED. BLADDER SCAN PERFORMED. RESIDUAL OF 201 ML PER BLADDER SCAN. RESULTS REPORTED TO DR MILES. ORDER RECEIVED TO INSERT OSEI CATHETER. 16 FR OSEI CATHETER INSERTED. EDEMA TO PENIS PRIOR TO INSERTION. SLIGHT RESISTANCE EXPERIENCED @ INSERTION. LIGHT RADHA URINE DRAINING.
--- NOTE | 2018-05-01 13:48 | NUR ---
DC PLAN PATIENT HAVING MEDICATION ADJUSTMENTS. DR. MUÑOZ AND DR. MILES ON THE CASE DUE TO BUN AND CREATINE. NEW LABS BEING DRAWN. PATIENT NO READY FOR DC TODAY. STILL HAVING SOB. WEANING OFF . FRANKY WINDOW 04/24 DOES NOT WANT TO GO TO FACILITY BUT CURRENTLY IN HOSPITAL WELL. PENDING ORDER FROM PRIMARY. Addendum: 05/01/18 at 1352 by DORI MCGOVERN RN CM Amended: Links added.
--- NOTE | 2018-05-01 15:54 | NUR ---
Fluid restriction review: RD reviewed fluid restriction protocol with pt as per pt's nurse request. Pt verbalized understanding restriction and food restricted. Pt with no nutritional questions.
[2018-05-01 16:00] VITALS: BP 107/63
[2018-05-01 19:29] LABS: APPEARANCE,URINE Cloudy (CLEAR); BILIRUBIN,URINE Moderate (NEGATIVE); COLOR,URINE Dark Yellow (YELLOW); GLUCOSE, URINE (UA) Negative (NEGATIVE); KETONES,URINE Trace mg/dL (NEGATIVE); LEUKOCYTE ESTERASE ,URINE Small (NEGATIVE); NITRATE,URINE Negative (NEGATIVE); OCCULT BLOOD,URINE Large (NEGATIVE); PROTEIN,URINE POS 1+ (NEGATIVE)
[2018-05-01 19:35] VITALS: BP 108/51
--- NOTE | 2018-05-01 19:35 | NUR ---
Received report pt, has urinary retention and mojica was inserted and it was bleeding.Pt. has in and out afib as per report and on 1.5 Fluid restriction.
[2018-05-01 19:44] LABS: BACTERIA,URINE Many /HPF (None Seen); RBC,URINE 26-50 /HPF (0-1)
[2018-05-01 19:45] LABS: AMORPHOUS SEDIMENT,UR Few /LPF (None Seen)
[2018-05-01 23:42] VITALS: BP 106/54
[2018-05-02 03:36] VITALS: BP 122/60
[2018-05-02 03:57] LABS: HEMATOCRIT 37.1 % (42-54); MEAN CORPUSCULAR HEMOGLOBIN 28.9 pg (27.0-33.0); MEAN CORPUSCULAR HGB CONC 33.2 g/dL (32.0-36.0); MEAN CORPUSCULAR VOLUME 87.2 fL (79-99); NUCLEATED RED BLOOD CELLS 0.1 % (0.0-0.19); PLATELET COUNT (AUTO) 210 K/uL (130-400); RED BLOOD CELL COUNT(AUTO) 4.25 MIL/uL (4.50-6.20); RED CELL DISTRIBUTION WIDTH 14.3 % (11.0-15.5)
[2018-05-02 04:14] LABS: ALBUMIN 2.2 g/dL (3.5-5.0); BILIRUBIN,TOTAL 0.5 mg/dL (0.2-1.0); CREATININE 2.4 mg/dL (0.5-1.5); MAGNESIUM 2.5 mg/dL (1.80-2.40); PHOSPHORUS 5.2 mg/dL (2.5-4.9); POTASSIUM 4.9 mmol/L (3.5-5.1); TOTAL PROTEIN, SERUM 4.8 g/dL (6.0-8.3); URIC ACID 13.3 mg/dL (2.6-7.2)
[2018-05-02] MEDS: INSULIN HUMULIN R 100 UNIT/ML 3ML SQ SCH ×4 (05:40→21:00)
[2018-05-02 07:25] VITALS: BP 121/51
--- NOTE | 2018-05-02 07:38 | NUR ---
Bedside report given to incoming NOD using SBAR all questions answered.Pt. remained stable.
[2018-05-02] MEDS: CLOPIDOGREL BISULFATE 75 MG TAB PO SCH (09:50)
[2018-05-02] MEDS: FOLIC ACID/VITAMIN B COMP W-C 1 MG CAPSULE PO SCH (09:50)
[2018-05-02] MEDS: ATORVASTATIN CALCIUM 40 MG TABLET PO SCH (09:51)
[2018-05-02] MEDS: ASPIRIN 81 MG EC TAB PO SCH (09:51)
[2018-05-02] MEDS: AMIODARONE HCL 200 MG TABLET PO SCH (09:51)
[2018-05-02] MEDS: ENOXAPARIN SODIUM 30 MG/0.3 ML SQ SCH (09:51)
[2018-05-02] MEDS: CYANOCOBALAMIN (VITAMIN B-12) 1,000 MCG TABLET PO SCH (09:51)
[2018-05-02 11:13] VITALS: BP 108/56
[2018-05-02] MEDS ORDERED: IPRATROPIUM/ALBUTEROL SULFATE 3 ML SOLUTION IH PRN (13:15)
[2018-05-02 16:09] VITALS: BP 99/54
[2018-05-02 18:11] LABS: APPEARANCE,URINE CLOUDY (CLEAR); BILIRUBIN,URINE MODERATE (NEGATIVE); COLOR,URINE YELLOW (YELLOW); GLUCOSE, URINE (UA) NEGATIVE (NEGATIVE); KETONES,URINE 5 mg/dL (NEGATIVE); LEUKOCYTE ESTERASE ,URINE SMALL (NEGATIVE); NITRATE,URINE NEGATIVE (NEGATIVE); OCCULT BLOOD,URINE LARGE (NEGATIVE); PROTEIN,URINE 30 (NEGATIVE); UROBILINOGEN,URINE 0.2 mg/dL (0.2-1.0)
[2018-05-02 18:36] LABS: BACTERIA,URINE Few /HPF (None Seen); RBC,URINE 26-50 /HPF (0-1); YEAST,URINE BUDDING Few /HPF (None Seen)
[2018-05-02 20:09] VITALS: BP 115/58
[2018-05-02] MEDS: FUROSEMIDE 10 MG/ML 4ML VIAL IV SCH (20:55)
[2018-05-02 23:43] VITALS: BP 106/61
[2018-05-03 04:00] VITALS: BP 101/52
[2018-05-03 04:01] LABS: HEMATOCRIT 33.7 % (42-54); MEAN CORPUSCULAR HEMOGLOBIN 30.2 pg (27.0-33.0); MEAN CORPUSCULAR HGB CONC 34.7 g/dL (32.0-36.0); MEAN CORPUSCULAR VOLUME 86.8 fL (79-99); PLATELET COUNT (AUTO) 241 K/uL (130-400); RED BLOOD CELL COUNT(AUTO) 3.88 MIL/uL (4.50-6.20); RED CELL DISTRIBUTION WIDTH 14.6 % (11.0-15.5); WHITE BLOOD COUNT (AUTO) 12.6 K/uL (4.8-10.8)
[2018-05-03 04:06] LABS: CREATININE 2.3 mg/dL (0.5-1.5); POTASSIUM 4.8 mmol/L (3.5-5.1)
[2018-05-03 04:12] LABS: BAND NEUTROPHILS % (MANUAL) 2 % (0-2); LYMPHOCYTES % (MANUAL) 5 % (22-44); MAN.DIFF COMMENT-IMPRESSION MANUAL DIFFERENTIAL; MONOCYTES % (MANUAL) 9 % (2-9); SEGMENTED NEUTROPHILS % 84 % (40-70)
[2018-05-03 04:13] LABS: PLATELET MORPHOLOGY COMMENT ADEQUATE
[2018-05-03] MEDS: INSULIN HUMULIN R 100 UNIT/ML 3ML SQ SCH ×4 (06:07→21:00)
[2018-05-03 07:15] VITALS: BP 104/50
[2018-05-03] MEDS: TAMSULOSIN HCL 0.4 MG CAP.ER.24H PO SCH ×2 (09:31→20:21)
[2018-05-03] MEDS: CEFTRIAXONE SODIUM 1 GM IVP SCH (09:31)
[2018-05-03] MEDS: ASPIRIN 81 MG EC TAB PO SCH (09:31)
[2018-05-03] MEDS: CYANOCOBALAMIN (VITAMIN B-12) 1,000 MCG TABLET PO SCH (09:31)
[2018-05-03] MEDS: ALLOPURINOL 100 MG TABLET PO SCH (09:31)
[2018-05-03] MEDS: ATORVASTATIN CALCIUM 40 MG TABLET PO SCH (09:31)
[2018-05-03] MEDS: AMIODARONE HCL 200 MG TABLET PO SCH (09:31)
[2018-05-03] MEDS: CLOPIDOGREL BISULFATE 75 MG TAB PO SCH (09:31)
[2018-05-03] MEDS: FOLIC ACID/VITAMIN B COMP W-C 1 MG CAPSULE PO SCH (09:31)
[2018-05-03] MEDS: FUROSEMIDE 10 MG/ML 4ML VIAL IV SCH ×2 (09:33→20:21)
[2018-05-03] MEDS: ENOXAPARIN SODIUM 30 MG/0.3 ML SQ SCH (09:33)
[2018-05-03] MEDS: HYDROCODONE/ACETAMINOPHEN 5/325 MG TAB PO PRN ×2 (09:39→23:00)
[2018-05-03 11:12] VITALS: BP 97/52
--- NOTE | 2018-05-03 14:39 | NUR ---
Nutrition Follow up: Pt is on a renal non dialysis diet. Pt continues with shortness of breath. Pt states he is just not feeling well. Pt is not hungry. Pt was eating canned pears and a cup of soup at time of visit. Labs reviewed. Pt with chest incision. LBM 05/01/18. Recommend Promod 60 ml at dinner. Pt agreed to try Promod supplement. RD to recommend heart healthy/soft texture diet with 1.[address] to f/u in 3-5 days. Addendum: 05/03/18 at [address] Amended: Links added.
[2018-05-03 16:36] VITALS: BP 105/57
[2018-05-03 19:55] VITALS: BP 98/49
[2018-05-03 23:26] VITALS: BP 97/49
[2018-05-04 03:36] VITALS: BP 108/48
[2018-05-04] MEDS: INSULIN HUMULIN R 100 UNIT/ML 3ML SQ SCH ×4 (06:20→20:44)
[2018-05-04] MEDS: ENOXAPARIN SODIUM 30 MG/0.3 ML SQ SCH (07:39)
[2018-05-04 08:05] VITALS: BP 95/46
[2018-05-04] MEDS: TAMSULOSIN HCL 0.4 MG CAP.ER.24H PO SCH ×2 (08:05→20:34)
[2018-05-04] MEDS: ATORVASTATIN CALCIUM 40 MG TABLET PO SCH (08:05)
[2018-05-04] MEDS: ASPIRIN 81 MG EC TAB PO SCH (08:05)
[2018-05-04] MEDS: CLOPIDOGREL BISULFATE 75 MG TAB PO SCH (08:05)
[2018-05-04] MEDS: FOLIC ACID/VITAMIN B COMP W-C 1 MG CAPSULE PO SCH (08:05)
[2018-05-04] MEDS: CYANOCOBALAMIN (VITAMIN B-12) 1,000 MCG TABLET PO SCH (08:05)
[2018-05-04] MEDS: AMIODARONE HCL 200 MG TABLET PO SCH (08:05)
[2018-05-04] MEDS: ALLOPURINOL 100 MG TABLET PO SCH (08:12)
[2018-05-04 09:31] LABS: INR 0.99 (0.85-1.15); PARTIAL THROMBOPLASTIN TIME 28.6 SEC (26.3-35.5); PROTHROMBIN TIME 10.4 SEC (9.6-11.6)
--- NOTE | 2018-05-04 10:20 | NUR ---
U/S GUIDED LEFT THORACENTESIS PROCEDURE PERFORMED BY DR. DUNCAN. PUNCTURE SITE TO LEFT POSTERIOR BACK ANS PATIENT TOLERATED PROCEDURE WELL. TOTAL REMOVED 750ML OF LEFT PLEURAL FLUID. END OF PROCEDURE AT 1020. CATHETER REOVED AND DRESSING APPLIED. NO BLEEDING NOTE. POST CHEST XRAY TAKEN AND READ BY DR. DUNCAN. NO PNEUMOTHOTAX SEEN. REPORT GIVEN TO JOHN AUSTIN RN. PROCEDURE DONE IN PATIENT ROOM PATIENT AAOX3 WITH NO COMPLAINT OF PAIN. SPECIMEN SENT TO LAB.
[2018-05-04 11:39] VITALS: BP 96/50
[2018-05-04] MEDS: CEFTRIAXONE SODIUM 1 GM IVP SCH (11:45)
[2018-05-04] MEDS: FUROSEMIDE 10 MG/ML 4ML VIAL IV SCH (11:45)
--- NOTE | 2018-05-04 13:17 | NUR ---
RELAYED TO DR. PADILLA CT CHEST RESULT THAT WAS DONE 04/23/[address] MALIK. SAID TO CONSULT ONCOLOGY.
--- NOTE | 2018-05-04 14:22 | NUR ---
PAGED DR. CONNORS ([phone]) WHO IS TAKING CALLS TODAY FOR NEW CONSULT. AWAITING MD'S CALLBACK.
--- NOTE | 2018-05-04 14:33 | NUR ---
SPOKE WITH DR. CONNORS AND INFORMED MD OF THE NEW CONSULT.
[2018-05-04] MEDS: NYSTATIN 100000 UNIT/ML 5ML UDCUP PO SCH ×2 (15:17→20:34)
[2018-05-04 16:56] VITALS: BP 92/45
[2018-05-04 19:18] LABS: CREATININE 2.3 mg/dL (0.5-1.5); POTASSIUM 4.9 mmol/L (3.5-5.1)
[2018-05-04 19:39] VITALS: BP 95/40
[2018-05-04] MEDS: COLCHICINE 0.6 MG TABLET PO SCH (20:34)
[2018-05-05] VITALS (13 sets, daily range): BP systolic 86–107; BP diastolic 41–53
[2018-05-05 04:41] LABS: HEMATOCRIT 33.5 % (42-54); MEAN CORPUSCULAR HGB CONC 34.3 g/dL (32.0-36.0); MEAN CORPUSCULAR VOLUME 87.5 fL (79-99); PLATELET COUNT (AUTO) 243 K/uL (130-400); RED BLOOD CELL COUNT(AUTO) 3.83 MIL/uL (4.50-6.20); RED CELL DISTRIBUTION WIDTH 14.4 % (11.0-15.5)
[2018-05-05 04:59] LABS: BAND NEUTROPHILS % (MANUAL) 14 % (0-2); LYMPHOCYTES % (MANUAL) 11 % (22-44); MAN.DIFF COMMENT-IMPRESSION MANUAL DIFFERENTIAL; MONOCYTES % (MANUAL) 7 % (2-9); PLATELET MORPHOLOGY COMMENT ADEQUATE; SEGMENTED NEUTROPHILS % 68 % (40-70)
[2018-05-05] MEDS: NYSTATIN 100000 UNIT/ML 5ML UDCUP PO SCH ×3 (05:14→21:28)
[2018-05-05] MEDS: INSULIN HUMULIN R 100 UNIT/ML 3ML SQ SCH ×4 (06:07→21:00)
[2018-05-05] MEDS: FUROSEMIDE 40 MG TABLET PO SCH (08:17)
[2018-05-05 08:50] LABS: ALBUMIN 1.9 g/dL (3.5-5.0); BILIRUBIN,TOTAL 0.3 mg/dL (0.2-1.0); CREATININE 2.1 mg/dL (0.5-1.5); POTASSIUM 4.9 mmol/L (3.5-5.1); TOTAL PROTEIN, SERUM 4.7 g/dL (6.0-8.3)
[2018-05-05] MEDS: ENOXAPARIN SODIUM 30 MG/0.3 ML SQ SCH (09:00)
--- NOTE | 2018-05-05 09:05 | NUR ---
DR. CONNORS IN ROOM SPEAKING WITH PT. RE:PLAN OF CARE.
[2018-05-05] MEDS ORDERED: DIATR MEGLU/DIATRIZOATE SODIUM 30 ML BOTTLE ONE (09:41)
[2018-05-05] MEDS: COLCHICINE 0.6 MG TABLET PO SCH ×2 (10:22→21:28)
[2018-05-05] MEDS: FOLIC ACID/VITAMIN B COMP W-C 1 MG CAPSULE PO SCH (10:22)
[2018-05-05] MEDS: TAMSULOSIN HCL 0.4 MG CAP.ER.24H PO SCH ×2 (10:22→21:28)
[2018-05-05] MEDS: CYANOCOBALAMIN (VITAMIN B-12) 1,000 MCG TABLET PO SCH (10:22)
[2018-05-05] MEDS: AMIODARONE HCL 200 MG TABLET PO SCH (10:23)
[2018-05-05] MEDS: ALLOPURINOL 100 MG TABLET PO SCH (10:23)
[2018-05-05] MEDS: ASPIRIN 81 MG EC TAB PO SCH (10:23)
[2018-05-05] MEDS: ATORVASTATIN CALCIUM 40 MG TABLET PO SCH (10:23)
[2018-05-05] MEDS: CEFTRIAXONE SODIUM 1 GM IVP SCH (10:23)
[2018-05-05] MEDS: FUROSEMIDE 10 MG/ML 4ML VIAL IV SCH ×2 (10:24→21:28)
[2018-05-05] MEDS: CLOPIDOGREL BISULFATE 75 MG TAB PO SCH (10:28)
[2018-05-05] MEDS: ALBUMIN (HUMAN) 25% 50 ML IV SCH (10:30)
--- NOTE | 2018-05-05 11:04 | NUR ---
PATIENT SCHEDULED FOR U/S GD LT AXILLARY LYMPH NODE BIOPSY. IMAGES REVIEWED BY DR Andrea RICKS AND RECOMMENDS U/S OF LT AXILLARY LYMPH NODE PRIOR TO BIOPSY. ORDERS PLACES AND PROCEDURE OUTCOME REPORTED TO Clem GALINDO RN
[2018-05-05] MEDS ORDERED: LIDOCAINE HCL 1% 20 ML VIAL ONE (15:08)
--- NOTE | 2018-05-05 16:30 | NUR ---
U/S GD LT AXILLA BX PROCEDURE PERFORMED BY DR Andrea RICKS. PUNCTURE SITE LT AXILLA AND PATIENT TOLERATED PROCEDURE WELL. SPECIMEN X 5 COLLECTED AND SENT TO LAB. END OF PROCEDURE AT 1615. BIOPSY NEEDLE REMOVED AND DRESSING APPLIED. NO BLEEDING NOTED. REPORT GIVEN TO Clem GALINDO RN AND PATIENT TRANSPORTED TO [facility] VIA BED AT [address] SCAN. AAO X3 WITH NO C/O PAIN.
--- NOTE | 2018-05-05 16:40 | NUR ---
RETURNED TO ROOM VIA BED ACCOMPANIED BY PARING MACHINE OPERATOR. PT. DENIES ANY C/O AT THIS TIME. LEFT AXILLA WITH LIGHT DRSG IN PLACE WITH PAPER TAPE, SECURE, D/I. CALL LIGHT WITHIN REACH, VERBALIZED ABILITY TO USE. BED LOW, SIDE RAILS UP X3.
--- NOTE | 2018-05-05 16:55 | NUR ---
CONT.'S RESTING IN BED W/O C/O. CALL LIGHT WITHIN REACH.
--- NOTE | 2018-05-05 17:25 | NUR ---
PAGED DR. THOMAS, PER ANSWERING SERVICE, TO NOTIFY RE:ORDER FOR RECOMMENDATION FOR PULMONARY CONSULT, AWAITING RESPONSE.
[2018-05-06 04:00] VITALS: BP 98/57
[2018-05-06 04:04] LABS: HEMATOCRIT 35.5 % (42-54); MEAN CORPUSCULAR HGB CONC 33.2 g/dL (32.0-36.0); MEAN CORPUSCULAR VOLUME 87.3 fL (79-99); PLATELET COUNT (AUTO) 234 K/uL (130-400); RED BLOOD CELL COUNT(AUTO) 4.06 MIL/uL (4.50-6.20); RED CELL DISTRIBUTION WIDTH 14.5 % (11.0-15.5); WHITE BLOOD COUNT (AUTO) 9.2 K/uL (4.8-10.8)
[2018-05-06] MEDS: NYSTATIN 100000 UNIT/ML 5ML UDCUP PO SCH ×3 (05:22→21:23)
[2018-05-06] MEDS: INSULIN HUMULIN R 100 UNIT/ML 3ML SQ SCH ×4 (05:38→21:00)
--- NOTE | 2018-05-06 07:30 | NUR ---
received report assessment completed aaox4 c/o sob, sat 98% on 2l , lung sounds clear, r.t. called for assessment
[2018-05-06 08:14] VITALS: BP 97/49
[2018-05-06] MEDS: FUROSEMIDE 40 MG TABLET PO SCH (09:00)
[2018-05-06 09:09] LABS: TOTAL PROTEIN, SERUM 4.9 g/dL (6.0-8.3)
[2018-05-06 09:19] LABS: ABG BASE EXCESS 0.1 mmol/L (-2.0-3.0); ABG HCO3 21.8 mmol/L (21.0-28.0); ABG PCO2 28 mmHg (35-48)
[2018-05-06] MEDS: CEFTRIAXONE SODIUM 1 GM IVP SCH (09:20)
[2018-05-06] MEDS: CLOPIDOGREL BISULFATE 75 MG TAB PO SCH (09:21)
[2018-05-06] MEDS: FOLIC ACID/VITAMIN B COMP W-C 1 MG CAPSULE PO SCH (09:21)
[2018-05-06] MEDS: TAMSULOSIN HCL 0.4 MG CAP.ER.24H PO SCH ×2 (09:21→21:23)
[2018-05-06] MEDS: AMIODARONE HCL 200 MG TABLET PO SCH (09:21)
[2018-05-06] MEDS: ASPIRIN 81 MG EC TAB PO SCH (09:21)
[2018-05-06] MEDS: ATORVASTATIN CALCIUM 40 MG TABLET PO SCH (09:21)
[2018-05-06] MEDS: ALLOPURINOL 100 MG TABLET PO SCH (09:22)
[2018-05-06] MEDS: CYANOCOBALAMIN (VITAMIN B-12) 1,000 MCG TABLET PO SCH (09:22)
[2018-05-06] MEDS: ENOXAPARIN SODIUM 30 MG/0.3 ML SQ SCH (09:23)
[2018-05-06] MEDS: COLCHICINE 0.6 MG TABLET PO SCH ×2 (09:34→21:23)
[2018-05-06] MEDS: FUROSEMIDE 10 MG/ML 4ML VIAL IV SCH ×2 (09:35→21:23)
[2018-05-06 09:47] LABS: SPECIMENTYPE,BODY FLUID PLEURAL
[2018-05-06 09:48] LABS: APPEARANCE BODY FLUID CLEAR (CLEAR); BODY FLUID RBC 198 /cu. mm.; BODY FLUID WBC 242 /cu. mm.; COLOR,BODY FLUID YELLOW (LT YELLOW); TOTAL VOLUME,BODY FLUID 750 mL
[2018-05-06 10:00] LABS: POTASSIUM 4.8 mmol/L (3.5-5.1)
[2018-05-06] MEDS: ALBUMIN (HUMAN) 25% 50 ML IV SCH (10:17)
[2018-05-06 10:47] LABS: BF LYMPHOCYTE 85 %; BF MESOTHELIAL 2 %; BF MONOCYTE 2 %
--- NOTE | 2018-05-06 11:25 | NUR ---
message sent to dr simmons regarding ct scan results, pt with sob, and hypotension
--- NOTE | 2018-05-06 11:33 | NUR ---
Nutrition f/u: Pt continues on renal non dialysis diet with nutrition supplementation with poor po intake d/t SOB. At time of RD visit, pt with radiologist. RD returned, pt on oxygen. Recommendations: Continue to monitor po intake. Encourage po intake. Consult RD if additional nutrition concerns arise. Addendum: 05/06/18 at [address] RD Amended: Links added.
[2018-05-06 11:38] VITALS: BP 99/55
--- NOTE | 2018-05-06 13:30 | NUR ---
pt b/p has maintained stable, sat 98%, on vm
[2018-05-06] MEDS: ALPRAZOLAM 0.5 MG TABLET PO PRN ×2 (14:13→21:24)
[2018-05-06 16:48] VITALS: BP 97/46
--- NOTE | 2018-05-06 17:00 | NUR ---
dr simmons here,states will follow up once biopsy results available
[2018-05-06 19:00] VITALS: BP 107/46
[2018-05-06 23:00] VITALS: BP 125/57
[2018-05-07] MEDS: HYDROCODONE/ACETAMINOPHEN 5/325 MG TAB PO PRN (00:30)
[2018-05-07 03:00] VITALS: BP 106/39
[2018-05-07 04:25] LABS: HEMATOCRIT 35.6 % (42-54); MEAN CORPUSCULAR HEMOGLOBIN 30.1 pg (27.0-33.0); MEAN CORPUSCULAR HGB CONC 34.4 g/dL (32.0-36.0); MEAN CORPUSCULAR VOLUME 87.4 fL (79-99); PLATELET COUNT (AUTO) 264 K/uL (130-400); RED BLOOD CELL COUNT(AUTO) 4.07 MIL/uL (4.50-6.20); RED CELL DISTRIBUTION WIDTH 14.6 % (11.0-15.5)
[2018-05-07 04:33] LABS: ALBUMIN 2.2 g/dL (3.5-5.0); BILIRUBIN,TOTAL 0.4 mg/dL (0.2-1.0); CREATININE 2.1 mg/dL (0.5-1.5); MAGNESIUM 2.2 mg/dL (1.80-2.40); PHOSPHORUS 5.6 mg/dL (2.5-4.9); POTASSIUM 4.6 mmol/L (3.5-5.1); TOTAL PROTEIN, SERUM 4.8 g/dL (6.0-8.3)
[2018-05-07] MEDS: ALPRAZOLAM 0.5 MG TABLET PO PRN (05:03)
[2018-05-07] MEDS: NYSTATIN 100000 UNIT/ML 5ML UDCUP PO SCH ×3 (05:03→20:23)
[2018-05-07 05:16] LABS: BAND NEUTROPHILS % (MANUAL) 12 % (0-2); BASOPHILS % (MANUAL) 1 % (0-2); MONOCYTES % (MANUAL) 7 % (2-9); REACTIVE LYMPHOCYTES 1 % (0-0); SEGMENTED NEUTROPHILS % 79 % (40-70)
[2018-05-07 05:17] LABS: MAN.DIFF COMMENT-IMPRESSION MANUAL DIFFERENTIAL; PLATELET MORPHOLOGY COMMENT ADEQUATE
[2018-05-07] MEDS: INSULIN HUMULIN R 100 UNIT/ML 3ML SQ SCH ×4 (05:51→21:00)
[2018-05-07 07:38] VITALS: BP 96/53
--- NOTE | 2018-05-07 08:00 | NUR ---
SPOKE WITH DR. Ambrocio BURCH UPON ROUNDING AND INFORMED HIM OF PT'S HANDS COLD TO TOUCH AND CAPILLARY REFILL DELAYED. CAME IN TO ASSESS PT, DID MANUAL BLOOD PRESSURE (98/60). STATED TO PT THAT ALL DOCTORS ONBOARD ARE AWARE OF SITUATION AND ARE AWAITING FOR BIOPSY RESULTS. WILL CONTINUE TO MONITOR.
[2018-05-07] MEDS: TAMSULOSIN HCL 0.4 MG CAP.ER.24H PO SCH ×2 (08:58→20:24)
[2018-05-07] MEDS: ATORVASTATIN CALCIUM 40 MG TABLET PO SCH (08:58)
[2018-05-07] MEDS: CLOPIDOGREL BISULFATE 75 MG TAB PO SCH (08:58)
[2018-05-07] MEDS: ASPIRIN 81 MG EC TAB PO SCH (08:59)
[2018-05-07] MEDS: FOLIC ACID/VITAMIN B COMP W-C 1 MG CAPSULE PO SCH (08:59)
[2018-05-07] MEDS: FUROSEMIDE 40 MG TABLET PO SCH ×2 (08:59→16:15)
[2018-05-07] MEDS: CYANOCOBALAMIN (VITAMIN B-12) 1,000 MCG TABLET PO SCH (08:59)
[2018-05-07] MEDS: ALLOPURINOL 100 MG TABLET PO SCH (08:59)
[2018-05-07] MEDS: COLCHICINE 0.6 MG TABLET PO SCH ×2 (08:59→20:36)
[2018-05-07] MEDS: CEFTRIAXONE SODIUM 1 GM IVP SCH (08:59)
[2018-05-07] MEDS: ALBUMIN (HUMAN) 25% 50 ML IV SCH (09:00)
[2018-05-07] MEDS: ENOXAPARIN SODIUM 30 MG/0.3 ML SQ SCH (09:01)
[2018-05-07] MEDS: AMIODARONE HCL 200 MG TABLET PO SCH (09:01)
[2018-05-07 11:50] VITALS: BP 101/59
--- NOTE | 2018-05-07 12:00 | NUR ---
PT APPEARS CALM AND COOPERATIVE, REMAINS TACHYPNEIC 22-28 RESP/MIN. O2 SAT 98%. REMAINS ON 30% VENTURI MASK.
[2018-05-07] MEDS ORDERED: ALPRAZOLAM 0.5 MG TABLET PO SCH (15:00)
--- NOTE | 2018-05-07 15:30 | NUR ---
RESTING COMFORTABLE THIS AFTERNOON. WILL CONTINUE TO MONITOR.
[2018-05-07] MEDS: CEFTAZIDIME PENTAHYDRATE 2 GM/VIAL IVP SCH (16:15)
--- NOTE | 2018-05-07 16:27 | NUR ---
DC PLAN VISITED WITH PATIENT. PATIENT REFUSED SNF. WANTS TO GO HOME. PATIENT CURRENTLY ON VENTI MASK. STILL HAVING A LOT OF BREATHING ISSUES. ASKED DIRECTOR TO TALK TO PRIMARY REGARDING SOLARA. PATIENT STILL WILL NEED A LOT OF CARE. Addendum: 05/07/18 at 1629 by DORI MCGOVERN RN Amended: Links added.
[2018-05-07 16:46] VITALS: BP 109/48
[2018-05-07 18:58] VITALS: BP 87/64
[2018-05-07] MEDS ORDERED: SIMETHICONE 80 MG TAB.CHEW ONE (20:19)
[2018-05-07] MEDS: MIRTAZAPINE 15 MG TABLET PO SCH (20:24)
[2018-05-07 23:03] VITALS: BP_SYST 110; BP_SYST 97; BP_DIAS 50; BP_DIAS 55
[2018-05-07] MEDS: ZOLPIDEM TARTRATE 5 MG TAB PO PRN (23:33)
[2018-05-08] MEDS: CEFTAZIDIME PENTAHYDRATE 2 GM/VIAL IVP SCH ×2 (01:31→15:01)
[2018-05-08] MEDS: HYDROCODONE/ACETAMINOPHEN 5/325 MG TAB PO PRN ×2 (01:34→10:04)
[2018-05-08 03:08] VITALS: BP 95/52
[2018-05-08 03:50] LABS: HEMATOCRIT 36.1 % (42-54); MEAN CORPUSCULAR HEMOGLOBIN 29.5 pg (27.0-33.0); MEAN CORPUSCULAR HGB CONC 33.8 g/dL (32.0-36.0); MEAN CORPUSCULAR VOLUME 87.4 fL (79-99); NUCLEATED RED BLOOD CELLS 0.1 % (0.0-0.19); PLATELET COUNT (AUTO) 241 K/uL (130-400); RED BLOOD CELL COUNT(AUTO) 4.13 MIL/uL (4.50-6.20); RED CELL DISTRIBUTION WIDTH 14.5 % (11.0-15.5); WHITE BLOOD COUNT (AUTO) 10.6 K/uL (4.8-10.8)
[2018-05-08 04:02] LABS: BAND NEUTROPHILS % (MANUAL) 16 % (0-2); LYMPHOCYTES % (MANUAL) 3 % (22-44); MONOCYTES % (MANUAL) 10 % (2-9); REACTIVE LYMPHOCYTES 2 % (0-0); SEGMENTED NEUTROPHILS % 69 % (40-70)
[2018-05-08 04:03] LABS: MAN.DIFF COMMENT-IMPRESSION MANUAL DIFFERENTIAL
[2018-05-08 04:11] LABS: ALBUMIN 2.3 g/dL (3.5-5.0); BILIRUBIN,TOTAL 0.4 mg/dL (0.2-1.0); CREATININE 2.8 mg/dL (0.5-1.5); POTASSIUM 4.9 mmol/L (3.5-5.1)
[2018-05-08] MEDS: NYSTATIN 100000 UNIT/ML 5ML UDCUP PO SCH ×3 (05:37→21:10)
[2018-05-08] MEDS: INSULIN HUMULIN R 100 UNIT/ML 3ML SQ SCH ×4 (06:09→21:00)
[2018-05-08] MEDS: ONDANSETRON HCL 4 MG/2 ML VIAL IVP PRN (08:01)
[2018-05-08] MEDS: ALBUMIN (HUMAN) 25% 50 ML IV SCH (08:03)
[2018-05-08 08:08] VITALS: BP 99/45
[2018-05-08] MEDS: ALPRAZOLAM 0.5 MG TABLET PO SCH ×2 (09:00→09:51)
[2018-05-08] MEDS: ENOXAPARIN SODIUM 30 MG/0.3 ML SQ SCH (09:49)
[2018-05-08] MEDS: FUROSEMIDE 40 MG TABLET PO SCH ×2 (09:50→16:36)
[2018-05-08] MEDS: CYANOCOBALAMIN (VITAMIN B-12) 1,000 MCG TABLET PO SCH (09:50)
[2018-05-08] MEDS: COLCHICINE 0.6 MG TABLET PO SCH ×2 (09:50→21:10)
[2018-05-08] MEDS: AMIODARONE HCL 200 MG TABLET PO SCH (09:51)
[2018-05-08] MEDS: TAMSULOSIN HCL 0.4 MG CAP.ER.24H PO SCH ×2 (09:51→21:11)
[2018-05-08] MEDS: FOLIC ACID/VITAMIN B COMP W-C 1 MG CAPSULE PO SCH (09:51)
[2018-05-08] MEDS: FLUOXETINE HCL 10 MG CAPSULE PO SCH (09:51)
[2018-05-08] MEDS: ATORVASTATIN CALCIUM 40 MG TABLET PO SCH (09:51)
[2018-05-08] MEDS: CLOPIDOGREL BISULFATE 75 MG TAB PO SCH (09:51)
[2018-05-08] MEDS: ASPIRIN 81 MG EC TAB PO SCH (09:51)
[2018-05-08] MEDS: ALLOPURINOL 100 MG TABLET PO SCH (09:51)
--- NOTE | 2018-05-08 10:27 | NUR ---
CALLED DR. WORRELL'S OFFICE FOR NEW CONSULT. SPOKE WITH JOSE GUADALUPE. AWAITING 'S CALLBACK AT EXT. [phone]
[2018-05-08 11:56] VITALS: BP 90/48
[2018-05-08 16:00] VITALS: BP 92/50
--- NOTE | 2018-05-08 19:00 | NUR ---
Started 24 Hrs. urine collection at 1900. Also send U/A to lab.
[2018-05-08 19:36] VITALS: BP 97/51
[2018-05-09] VITALS (7 sets, daily range): BP systolic 95–104; BP diastolic 44–58
[2018-05-09] MEDS: CEFTAZIDIME PENTAHYDRATE 2 GM/VIAL IVP SCH (01:36)
[2018-05-09] MEDS: MIRTAZAPINE 15 MG TABLET PO SCH ×2 (01:38→20:28)
[2018-05-09 03:41] LABS: APPEARANCE,URINE Cloudy (CLEAR); BILIRUBIN,URINE Negative (NEGATIVE); COLOR,URINE Yellow (YELLOW); GLUCOSE, URINE (UA) Negative (NEGATIVE); KETONES,URINE Negative (NEGATIVE); LEUKOCYTE ESTERASE ,URINE Large (NEGATIVE); NITRATE,URINE Negative (NEGATIVE); OCCULT BLOOD,URINE Large (NEGATIVE); PROTEIN,URINE Negative (NEGATIVE); UROBILINOGEN,URINE 0.2 mg/dL (0.2-1.0)
[2018-05-09 03:53] LABS: BACTERIA,URINE None Seen /HPF (None Seen); SQUAMOUS EPITHELIAL CELL,UR Few /HPF (0-2); YEAST,URINE BUDDING Many /HPF (None Seen)
[2018-05-09] MEDS: NYSTATIN 100000 UNIT/ML 5ML UDCUP PO SCH ×3 (04:01→20:31)
[2018-05-09 04:03] LABS: HEMATOCRIT 34.9 % (42-54); MEAN CORPUSCULAR HEMOGLOBIN 29.3 pg (27.0-33.0); MEAN CORPUSCULAR HGB CONC 33.3 g/dL (32.0-36.0); MEAN CORPUSCULAR VOLUME 88.1 fL (79-99); PLATELET COUNT (AUTO) 235 K/uL (130-400); RED BLOOD CELL COUNT(AUTO) 3.96 MIL/uL (4.50-6.20); RED CELL DISTRIBUTION WIDTH 14.6 % (11.0-15.5); WHITE BLOOD COUNT (AUTO) 7.4 K/uL (4.8-10.8)
[2018-05-09 04:21] LABS: ALBUMIN 2.2 g/dL (3.5-5.0); BILIRUBIN,TOTAL 0.3 mg/dL (0.2-1.0); CREATININE 3.1 mg/dL (0.5-1.5); POTASSIUM 4.6 mmol/L (3.5-5.1); TOTAL PROTEIN, SERUM 4.8 g/dL (6.0-8.3)
[2018-05-09 04:52] LABS: BAND NEUTROPHILS % (MANUAL) 11 % (0-2); EOSINOPHILS % (MANUAL) 2 % (1-6); LYMPHOCYTES % (MANUAL) 8 % (22-44); MAN.DIFF COMMENT-IMPRESSION MANUAL DIFFERENTIAL; MONOCYTES % (MANUAL) 3 % (2-9); SEGMENTED NEUTROPHILS % 76 % (40-70)
[2018-05-09] MEDS: INSULIN HUMULIN R 100 UNIT/ML 3ML SQ SCH ×4 (06:39→20:21)
--- NOTE | 2018-05-09 07:00 | NUR ---
Dr. Harley aware of Lab results, and V/S. Will cont. to monitor Patient's status. Patient in no apparent distress at this time.
--- NOTE | 2018-05-09 07:50 | NUR ---
ASSESSMENT ENCOUNTERED PT IN HIGH HONG'S POSITION, A&OX3, WITH 50% VENTI MASK, C/O CHRONIC BACK PAIN BUT WHEN REPOSITIONED TO SEMI AND LOW HONG'S POSITION, PT WOULD C/O SOB, INFORMED PT THAT THORACENTESIS WAS PENDING AND THAT PAIN MANAGEMENT WOULD BE UTILIZED TO KEEP PT FROM FEELING SOB. OSEI CATH IN PLACE AND SECURED WITH STAT LOCK, LOWER EXTREMITY EDEMA BILATERALLY. INFORMED PT THAT HE DID NOT NEED TO BE NPO FOR THORACENTESIS. CALL LIGHT WITHIN REACH.
--- NOTE | 2018-05-09 08:20 | NUR ---
Report given to Josh Harding R.N. Patient in stable condition.
[2018-05-09] MEDS: FOLIC ACID/VITAMIN B COMP W-C 1 MG CAPSULE PO SCH (08:43)
[2018-05-09] MEDS: AMIODARONE HCL 200 MG TABLET PO SCH (08:43)
[2018-05-09] MEDS: ALBUMIN (HUMAN) 25% 50 ML IV SCH ×2 (08:43→20:28)
[2018-05-09] MEDS: ATORVASTATIN CALCIUM 40 MG TABLET PO SCH (08:43)
[2018-05-09] MEDS: FUROSEMIDE 40 MG TABLET PO SCH ×2 (08:43→17:46)
[2018-05-09] MEDS: COLCHICINE 0.6 MG TABLET PO SCH ×2 (08:43→20:28)
[2018-05-09] MEDS: FLUOXETINE HCL 10 MG CAPSULE PO SCH (08:43)
[2018-05-09] MEDS: TAMSULOSIN HCL 0.4 MG CAP.ER.24H PO SCH ×2 (08:43→20:28)
[2018-05-09] MEDS: CYANOCOBALAMIN (VITAMIN B-12) 1,000 MCG TABLET PO SCH (08:43)
[2018-05-09] MEDS: ALLOPURINOL 100 MG TABLET PO SCH (08:43)
[2018-05-09] MEDS: HYDROCODONE/ACETAMINOPHEN 5/325 MG TAB PO PRN ×2 (08:44→17:46)
[2018-05-09] MEDS: ENOXAPARIN SODIUM 30 MG/0.3 ML SQ SCH (09:00)
[2018-05-09] MEDS: ALPRAZOLAM 0.5 MG TABLET PO SCH (09:00)
--- NOTE | 2018-05-09 13:41 | NUR ---
Nutrition f/u: Pt continues on renal non-dialysis diet, 75gmCCD with poor po intake d/t SOB and poor appetite. Pt receiving nutrition supplementation at dinner time. [facility] attempted to speak to pt about additional nutrition supplementation throughout the day. Pt refusing nutrition intervention. Pt states he does not want to talk or eat, he just wants to feel better. Nurse Josh aware of pt's condition. Pt pending thoracentesis. LBM 05/08. Addendum: 05/09/18 at [address] RD Amended: Links added.
[2018-05-09] MEDS ORDERED: LIDOCAINE HCL 1% 20 ML VIAL INJ SCH (14:45)
--- NOTE | 2018-05-09 15:00 | NUR ---
THORACENTESIS AT BEDSIDE BY DR HINTON AND PEST TECHNICIAN- MARBELLA DIETRICH. 900ML OF SEROUS FLUID REMOVED BY RT SIDE, TOLERATED WELL. CALL LIGHT WITHIN REACH.
[2018-05-09 16:24] LABS: SPECIMENTYPE,BODY FLUID RT THORACENTESIS
[2018-05-09 16:55] LABS: APPEARANCE BODY FLUID SLIGHTLY CLOUDY (CLEAR); BODY FLUID RBC 1150 /cu. mm.; BODY FLUID WBC 843 /cu. mm.; COLOR,BODY FLUID LT YELLOW (LT YELLOW); TOTAL VOLUME,BODY FLUID 925 mL
[2018-05-09 17:07] LABS: BF LYMPHOCYTE 78 %; BF MONOCYTE 5 %
[2018-05-09] MEDS: ASPIRIN 81 MG EC TAB PO SCH (17:46)
[2018-05-09] MEDS: CLOPIDOGREL BISULFATE 75 MG TAB PO SCH (17:46)
[2018-05-09] MEDS: MIDODRINE HCL 5 MG TABLET PO SCH (20:28)
[2018-05-09] MEDS: ALPRAZOLAM 0.5 MG TABLET PO PRN (21:02)
[2018-05-10] MEDS: ALPRAZOLAM 0.5 MG TABLET PO PRN (00:02)
[2018-05-10] MEDS: CEFTAZIDIME PENTAHYDRATE 2 GM/VIAL IVP SCH (02:20)
[2018-05-10 03:47] VITALS: BP 98/48
[2018-05-10 04:10] LABS: CREATININE 3.3 mg/dL (0.5-1.5); POTASSIUM 4.7 mmol/L (3.5-5.1)
[2018-05-10] MEDS: NYSTATIN 100000 UNIT/ML 5ML UDCUP PO SCH ×3 (06:06→21:27)
[2018-05-10] MEDS: INSULIN HUMULIN R 100 UNIT/ML 3ML SQ SCH ×4 (06:06→21:00)
[2018-05-10] MEDS: HYDROCODONE/ACETAMINOPHEN 5/325 MG TAB PO PRN (06:13)
[2018-05-10 07:55] VITALS: BP_SYST 118; BP_SYST 97; BP_DIAS 53; BP_DIAS 60; BP_DIAS 97
[2018-05-10] MEDS: ALBUMIN (HUMAN) 25% 50 ML IV SCH ×4 (09:00→21:17)
[2018-05-10] MEDS: ALPRAZOLAM 0.5 MG TABLET PO SCH (09:00)
[2018-05-10] MEDS: AMIODARONE HCL 200 MG TABLET PO SCH (10:26)
[2018-05-10] MEDS: FOLIC ACID/VITAMIN B COMP W-C 1 MG CAPSULE PO SCH (10:26)
[2018-05-10] MEDS: MIDODRINE HCL 5 MG TABLET PO SCH ×3 (10:26→21:18)
[2018-05-10] MEDS: ASPIRIN 81 MG EC TAB PO SCH (10:26)
[2018-05-10] MEDS: CLOPIDOGREL BISULFATE 75 MG TAB PO SCH (10:26)
[2018-05-10] MEDS: ATORVASTATIN CALCIUM 40 MG TABLET PO SCH (10:26)
[2018-05-10] MEDS: ALLOPURINOL 100 MG TABLET PO SCH (10:26)
[2018-05-10] MEDS: FLUOXETINE HCL 10 MG CAPSULE PO SCH (10:26)
[2018-05-10] MEDS: TAMSULOSIN HCL 0.4 MG CAP.ER.24H PO SCH ×2 (10:26→21:18)
[2018-05-10] MEDS: CYANOCOBALAMIN (VITAMIN B-12) 1,000 MCG TABLET PO SCH (10:27)
[2018-05-10] MEDS: ENOXAPARIN SODIUM 30 MG/0.3 ML SQ SCH (10:27)
[2018-05-10] MEDS: FUROSEMIDE 40 MG TABLET PO SCH ×2 (10:27→18:02)
[2018-05-10] MEDS: COLCHICINE 0.6 MG TABLET PO SCH ×2 (10:27→21:18)
[2018-05-10 12:04] VITALS: BP 92/49
[2018-05-10 16:41] VITALS: BP 99/49
[2018-05-10 19:43] VITALS: BP 104/50
[2018-05-10] MEDS: MIRTAZAPINE 15 MG TABLET PO SCH (21:18)
[2018-05-10 23:34] VITALS: BP 102/52
[2018-05-11] MEDS: CEFTAZIDIME PENTAHYDRATE 2 GM/VIAL IVP SCH (02:28)
[2018-05-11 03:47] VITALS: BP 104/46
[2018-05-11] MEDS: INSULIN HUMULIN R 100 UNIT/ML 3ML SQ SCH ×4 (06:40→20:26)
[2018-05-11] MEDS: NYSTATIN 100000 UNIT/ML 5ML UDCUP PO SCH ×3 (06:40→20:30)
[2018-05-11 07:00] VITALS: BP 108/50
[2018-05-11] MEDS: ALPRAZOLAM 0.5 MG TABLET PO SCH (09:00)
[2018-05-11] MEDS: ALBUMIN (HUMAN) 25% 50 ML IV SCH ×3 (09:00→15:05)
[2018-05-11] MEDS: ASPIRIN 81 MG EC TAB PO SCH (09:40)
[2018-05-11] MEDS: FUROSEMIDE 40 MG TABLET PO SCH ×2 (09:41→17:00)
[2018-05-11] MEDS: CLOPIDOGREL BISULFATE 75 MG TAB PO SCH (09:41)
[2018-05-11] MEDS: AMIODARONE HCL 200 MG TABLET PO SCH (09:41)
[2018-05-11] MEDS: ALLOPURINOL 100 MG TABLET PO SCH (09:41)
[2018-05-11] MEDS: COLCHICINE 0.6 MG TABLET PO SCH ×2 (09:41→20:30)
[2018-05-11] MEDS: TAMSULOSIN HCL 0.4 MG CAP.ER.24H PO SCH ×2 (09:41→20:30)
[2018-05-11] MEDS: ATORVASTATIN CALCIUM 40 MG TABLET PO SCH (09:41)
[2018-05-11] MEDS: FOLIC ACID/VITAMIN B COMP W-C 1 MG CAPSULE PO SCH (09:41)
[2018-05-11] MEDS: FLUOXETINE HCL 10 MG CAPSULE PO SCH (09:41)
[2018-05-11] MEDS: MIDODRINE HCL 5 MG TABLET PO SCH ×3 (09:42→20:30)
[2018-05-11] MEDS: CYANOCOBALAMIN (VITAMIN B-12) 1,000 MCG TABLET PO SCH (09:42)
[2018-05-11] MEDS: ENOXAPARIN SODIUM 30 MG/0.3 ML SQ SCH (09:43)
[2018-05-11 11:00] VITALS: BP 96/49
[2018-05-11 16:00] VITALS: BP 106/50
[2018-05-11 19:45] VITALS: BP 103/48
[2018-05-11] MEDS: MIRTAZAPINE 15 MG TABLET PO SCH (20:30)
[2018-05-11 23:36] VITALS: BP 108/56
[2018-05-12] MEDS: CEFTAZIDIME PENTAHYDRATE 2 GM/VIAL IVP SCH (02:49)
[2018-05-12 04:00] VITALS: BP 102/53
[2018-05-12] MEDS: NYSTATIN 100000 UNIT/ML 5ML UDCUP PO SCH ×3 (05:22→23:21)
[2018-05-12] MEDS: INSULIN HUMULIN R 100 UNIT/ML 3ML SQ SCH ×4 (06:34→21:00)
[2018-05-12 07:43] VITALS: BP 93/44
[2018-05-12] MEDS: COLCHICINE 0.6 MG TABLET PO SCH (09:00)
[2018-05-12] MEDS: TAMSULOSIN HCL 0.4 MG CAP.ER.24H PO SCH ×2 (09:16→20:42)
[2018-05-12] MEDS: CLOPIDOGREL BISULFATE 75 MG TAB PO SCH (09:16)
[2018-05-12] MEDS: CYANOCOBALAMIN (VITAMIN B-12) 1,000 MCG TABLET PO SCH (09:17)
[2018-05-12] MEDS: FOLIC ACID/VITAMIN B COMP W-C 1 MG CAPSULE PO SCH (09:18)
[2018-05-12] MEDS: MIDODRINE HCL 5 MG TABLET PO SCH ×3 (09:18→20:42)
[2018-05-12] MEDS: ASPIRIN 81 MG EC TAB PO SCH (09:19)
[2018-05-12] MEDS: FUROSEMIDE 40 MG TABLET PO SCH (09:19)
[2018-05-12] MEDS: ATORVASTATIN CALCIUM 40 MG TABLET PO SCH (09:19)
[2018-05-12] MEDS: AMIODARONE HCL 200 MG TABLET PO SCH (09:19)
[2018-05-12] MEDS: ALLOPURINOL 100 MG TABLET PO SCH (09:19)
[2018-05-12] MEDS: ALPRAZOLAM 0.5 MG TABLET PO SCH (09:19)
[2018-05-12] MEDS: FLUOXETINE HCL 10 MG CAPSULE PO SCH (09:19)
[2018-05-12] MEDS: ONDANSETRON HCL 4 MG/2 ML VIAL IVP PRN ×2 (09:29→23:22)
[2018-05-12] MEDS: ENOXAPARIN SODIUM 30 MG/0.3 ML SQ SCH (09:34)
[2018-05-12 11:27] VITALS: BP 103/53
[2018-05-12] MEDS ORDERED: METHYLPREDNISOLONE SOD SUCC 40MG/ML 1ML IVP SCH (14:15)
[2018-05-12 14:54] LABS: MEAN CORPUSCULAR HEMOGLOBIN 29.4 pg (27.0-33.0); MEAN CORPUSCULAR HGB CONC 33.4 g/dL (32.0-36.0); MEAN CORPUSCULAR VOLUME 87.8 fL (79-99); PLATELET COUNT (AUTO) 219 K/uL (130-400); RED BLOOD CELL COUNT(AUTO) 4.22 MIL/uL (4.50-6.20); WHITE BLOOD COUNT (AUTO) 9.4 K/uL (4.8-10.8)
--- NOTE | 2018-05-12 15:09 | NUR ---
Nutrition f/u: Pt continues with poor po intake. Pt asleep at time of RD visit, pt's at bedside and provided nutrition feedback. and pt's RN report poor po intake d/t not feeling well. states he prefers to eat soups and nutrition supplement over solids. Pt receiving nutrition supplement QD at dinner time. LBM noted 05/11. Recommendations: If medically feasible, recommend appetite stimulant. Continue current diet therapy. Consult RD if additional nutrition concerns arise. Addendum: 05/12/18 at [address] RD Amended: Links added.
[2018-05-12 15:14] LABS: CREATININE 3.6 mg/dL (0.5-1.5); POTASSIUM 4.1 mmol/L (3.5-5.1)
[2018-05-12 16:54] VITALS: BP 113/50
[2018-05-12] MEDS: SODIUM CHLORIDE 0.9% 1000ML 1,000 ML IV SCH (18:18)
[2018-05-12 19:02] VITALS: BP 111/49
[2018-05-12 19:28] LABS: AMMONIA 8 umol/L (11-32); LIPASE 131 U/L (114-286)
[2018-05-12] MEDS: MIRTAZAPINE 15 MG TABLET PO SCH (20:42)
[2018-05-12] MEDS: PREDNISONE 20 MG TABLET PO SCH (20:42)
[2018-05-12 23:13] VITALS: BP 117/56
[2018-05-13] MEDS: CEFTAZIDIME PENTAHYDRATE 2 GM/VIAL IVP SCH (03:07)
[2018-05-13 03:17] VITALS: BP 104/52
[2018-05-13 03:49] LABS: HEMATOCRIT 34.8 % (42-54); MEAN CORPUSCULAR HEMOGLOBIN 29.8 pg (27.0-33.0); MEAN CORPUSCULAR HGB CONC 33.8 g/dL (32.0-36.0); MEAN CORPUSCULAR VOLUME 88.1 fL (79-99); NUCLEATED RED BLOOD CELLS 0.1 % (0.0-0.19); PLATELET COUNT (AUTO) 216 K/uL (130-400); RED BLOOD CELL COUNT(AUTO) 3.95 MIL/uL (4.50-6.20); RED CELL DISTRIBUTION WIDTH 14.8 % (11.0-15.5); WHITE BLOOD COUNT (AUTO) 8.1 K/uL (4.8-10.8)
[2018-05-13 04:00] LABS: ALBUMIN 2.4 g/dL (3.5-5.0); BILIRUBIN,TOTAL 0.4 mg/dL (0.2-1.0); CREATININE 3.7 mg/dL (0.5-1.5); POTASSIUM 4.4 mmol/L (3.5-5.1); TOTAL PROTEIN, SERUM 4.9 g/dL (6.0-8.3)
[2018-05-13] MEDS: NYSTATIN 100000 UNIT/ML 5ML UDCUP PO SCH ×3 (05:53→20:22)
[2018-05-13] MEDS: INSULIN HUMULIN R 100 UNIT/ML 3ML SQ SCH ×4 (07:14→21:00)
--- NOTE | 2018-05-13 07:25 | NUR ---
ASSESSMENT Arousable with verbal stimulation. Repositioned for comfort. Generalized edema - pitting edema to LE's. ALEXANDRA hose removed - replaced with bilateral SCD's. Pt with LE edema and ALEXANDRA stockings appear binding and may compromise skin integrity secondary to stricture. Diminished breath sounds. SOB with minimal exertion, i.e., repositioning in bed. Abd round, distended. Pt with poor PO intake - currently NPO for abd US. Reports ongoing indigestion. Denies nausea. Denies chest pain. Assessment completed. Call light within reach.
[2018-05-13 07:40] VITALS: BP 110/52
[2018-05-13] MEDS: FLUOXETINE HCL 10 MG CAPSULE PO SCH (09:00)
[2018-05-13] MEDS: ALLOPURINOL 100 MG TABLET PO SCH (09:00)
[2018-05-13] MEDS: AMIODARONE HCL 200 MG TABLET PO SCH (09:00)
[2018-05-13] MEDS: CYANOCOBALAMIN (VITAMIN B-12) 1,000 MCG TABLET PO SCH (09:00)
[2018-05-13] MEDS: SODIUM CHLORIDE 0.9% 1000ML 1,000 ML IV SCH ×2 (09:43→23:18)
[2018-05-13] MEDS: MIDODRINE HCL 5 MG TABLET PO SCH ×3 (09:44→20:22)
[2018-05-13] MEDS: ASPIRIN 81 MG EC TAB PO SCH (09:44)
[2018-05-13] MEDS: TAMSULOSIN HCL 0.4 MG CAP.ER.24H PO SCH ×2 (09:44→20:22)
[2018-05-13] MEDS: ENOXAPARIN SODIUM 30 MG/0.3 ML SQ SCH (09:45)
[2018-05-13] MEDS: ALPRAZOLAM 0.5 MG TABLET PO SCH (09:45)
--- NOTE | 2018-05-13 10:50 | NUR ---
MED ADMINISTRATION Pt refused meds secondary to difficulty swallowing r/t mouth "pain". Ongoing treatment for oral thrush. Additionally, pt reports nausea with meds on an empty stomach. Will clarify meds with MD on rounds secondary to abnl lab values.
[2018-05-13] MEDS: PREDNISONE 20 MG TABLET PO SCH ×2 (10:51→20:22)
[2018-05-13] MEDS: FOLIC ACID/VITAMIN B COMP W-C 1 MG CAPSULE PO SCH (10:51)
[2018-05-13] MEDS: CLOPIDOGREL BISULFATE 75 MG TAB PO SCH (10:56)
[2018-05-13 11:43] VITALS: BP 113/48
[2018-05-13] MEDS: MAG HYDROX/AL HYDROX/SIMETH ES 30 ML SUSP UDCUP PO PRN ×2 (12:43→20:22)
--- NOTE | 2018-05-13 12:55 | NUR ---
STATUS Medicated for c/o heartburn per PRN orders - refer to eMAR. Repositioned to right side lying position for comfort. Spouse at bedside - briefly updated.
[2018-05-13 16:06] VITALS: BP 101/48
[2018-05-13 17:25] LABS: CREATININE,SERUM FOR CRCL 3.3 mg/dL (0.6-1.3)
[2018-05-13 17:26] LABS: COLLECTION PERIOD,URINE 24 HR; TOTAL VOLUME 24HRS,URINE 1200 mL; TPROTEIN TIMED,URINE 196 mg/dL; TPROTEIN U,24HR CALC 2352 mg/24HR (0-165)
--- NOTE | 2018-05-13 17:30 | NUR ---
MD ROUNDS in to see pt - updated. Recent lab values and diagnostic results reviewed by .
[2018-05-13 18:57] VITALS: BP 105/51
[2018-05-13] MEDS: MIRTAZAPINE 15 MG TABLET PO SCH (20:22)
[2018-05-13 23:14] VITALS: BP 104/49
[2018-05-13] MEDS: HYDROCODONE/ACETAMINOPHEN 5/325 MG TAB PO PRN (23:17)
[2018-05-14] MEDS: CEFTAZIDIME PENTAHYDRATE 2 GM/VIAL IVP SCH (02:19)
[2018-05-14 03:21] VITALS: BP 109/58
[2018-05-14 03:35] LABS: BASOPHILS % (AUTO) 0.5 % (0.0-5.0); EOSINOPHILS % (AUTO) 0.1 % (0.0-8.0); HEMATOCRIT 34.4 % (42-54); LYMPHOCYTES % (AUTO) 5.8 % (21.0-51.0); MEAN CORPUSCULAR HEMOGLOBIN 29.7 pg (27.0-33.0); MEAN CORPUSCULAR HGB CONC 33.8 g/dL (32.0-36.0); NEUTROPHILS % (AUTO) 88.6 % (40.0-77.0); PLATELET COUNT (AUTO) 199 K/uL (130-400); RED BLOOD CELL COUNT(AUTO) 3.91 MIL/uL (4.50-6.20); WHITE BLOOD COUNT (AUTO) 9.5 K/uL (4.8-10.8)
[2018-05-14 04:09] LABS: ALANINE AMINOTRANSFERASE 165 U/L (12-78); ALBUMIN 2.3 g/dL (3.5-5.0); ASPARTATE AMINOTRANSFERASE 87 U/L (10-37); BILIRUBIN,TOTAL 0.4 mg/dL (0.2-1.0); CARBON DIOXIDE 23 mmol/L (21-32); CHLORIDE 102 mmol/L (101-111); CREATINE KINASE, TOTAL 9 U/L (21-232); CREATININE 3.5 mg/dL (0.5-1.5); GLOMERULAR FILTR. RATE CALC 18 mL/min (>60); GLUCOSE,RANDOM 147 mg/dL (70-105); MYOGLOBIN 75 ng/mL (10-92); POTASSIUM 4.3 mmol/L (3.5-5.1); SODIUM SERUM 137 mmol/L (136-145); THYROID STIMULATING HORMONE 3.44 uIU/mL (0.36-3.74); TOTAL PROTEIN, SERUM 4.7 g/dL (6.0-8.3); TROPONIN I < 0.04 ng/mL (0.00-0.06)
[2018-05-14 04:15] LABS: CRP QUANTITATIVE < 2.00 mg/L (0.00-9.0)
[2018-05-14 04:16] LABS: UREA NITROGEN, BLOOD 114 mg/dL (7-18)
--- NOTE | 2018-05-14 05:12 | NUR ---
Patient c/o pain to penile area. C/o voiding when trying to urinate. Mojica catheter balloon deflated, patient able to urinate. Mojica cather intact with brownish/ yellow clumps at tip of mojica cather. Patient stated relief once mojica was removed. Will reinsert for strict monitoring of input and output and to prevent further skin breakdown.
[2018-05-14] MEDS: NYSTATIN 100000 UNIT/ML 5ML UDCUP PO SCH ×3 (06:05→21:05)
--- NOTE | 2018-05-14 06:45 | NUR ---
Dr Harley rounded on patient. New mojica inserted
[2018-05-14] MEDS: INSULIN HUMULIN R 100 UNIT/ML 3ML SQ SCH ×4 (06:46→21:00)
[2018-05-14 07:33] VITALS: BP 95/41
--- NOTE | 2018-05-14 09:00 | NUR ---
RESTING IN BED WITH EYES CLOSED, RESP.'S EVEN AND UNLABORED. OPENS EYES TO VERBAL COMMAND. DROWSY BUT AROUSABLE; DENIES ANY CURRENT PAIN, DENIES ANY CURRENT SOB. COMPLETE ASSESSMENT DONE. CALL LIGHT WITHIN REACH. REPOSITIONED FOR COMFORT.
[2018-05-14] MEDS: PREDNISONE 20 MG TABLET PO SCH ×2 (09:14→21:05)
[2018-05-14] MEDS: AMIODARONE HCL 200 MG TABLET PO SCH (09:14)
[2018-05-14] MEDS: ALPRAZOLAM 0.5 MG TABLET PO SCH (09:14)
[2018-05-14] MEDS: MIDODRINE HCL 5 MG TABLET PO SCH ×3 (09:14→21:05)
[2018-05-14] MEDS: ASPIRIN 81 MG EC TAB PO SCH (09:14)
[2018-05-14] MEDS: CYANOCOBALAMIN (VITAMIN B-12) 1,000 MCG TABLET PO SCH (09:17)
[2018-05-14] MEDS: TAMSULOSIN HCL 0.4 MG CAP.ER.24H PO SCH ×2 (09:17→21:05)
[2018-05-14] MEDS: CLOPIDOGREL BISULFATE 75 MG TAB PO SCH (09:17)
[2018-05-14] MEDS: FOLIC ACID/VITAMIN B COMP W-C 1 MG CAPSULE PO SCH (09:17)
[2018-05-14] MEDS: ALLOPURINOL 100 MG TABLET PO SCH (09:17)
[2018-05-14] MEDS: FLUOXETINE HCL 10 MG CAPSULE PO SCH (09:17)
[2018-05-14] MEDS: ENOXAPARIN SODIUM 30 MG/0.3 ML SQ SCH (09:18)
[2018-05-14] MEDS: SODIUM CHLORIDE 0.9% 1000ML 1,000 ML IV SCH (09:45)
[2018-05-14 11:36] VITALS: BP 98/49
--- NOTE | 2018-05-14 12:00 | NUR ---
RESTING IN BED. ASSISTED WITH LUNCH BY ANABEL MOREIRA.
--- NOTE | 2018-05-14 13:15 | NUR ---
RESTING WITH EYES CLOSED. REPOSITIONED FOR COMFORT. CALL LIGHT PLACED IN PT.'S HAND.
--- NOTE | 2018-05-14 13:48 | NUR ---
DR. Tari MARCELINO IN ROOM SPEAKING WITH PT. Addendum: 05/14/18 at 2018 by WANDA GALINDO RN RN ALSO SPEAKING WITH PT.'S SPOUSE AT BEDSIDE.
[2018-05-14 16:20] VITALS: BP 101/49
--- NOTE | 2018-05-14 16:57 | NUR ---
PPD-PT VERIFIED USING 2 PT IDENTIFIERS. PPD PLACED TO LEFT ANTERIOR FOREARM PER ORDERS, NO BLEEDING OR HEMATOMA NOTED TO SITE. DR. MARCELINO NOTIFIED BY CHARGE NURSE TO CLARIFY ORDER. NO AIRBORNE ISOLATION INDICATED PER MD.
[2018-05-14 19:00] VITALS: BP 99/49
[2018-05-14] MEDS: MIRTAZAPINE 15 MG TABLET PO SCH (21:05)
[2018-05-14 23:00] VITALS: BP 114/46
[2018-05-15] MEDS: CEFTAZIDIME PENTAHYDRATE 2 GM/VIAL IVP SCH (01:52)
[2018-05-15 03:00] VITALS: BP 103/51
[2018-05-15 03:36] LABS: HEMATOCRIT 36.2 % (42-54); MEAN CORPUSCULAR HEMOGLOBIN 29.5 pg (27.0-33.0); MEAN CORPUSCULAR HGB CONC 33.4 g/dL (32.0-36.0); MEAN CORPUSCULAR VOLUME 88.3 fL (79-99); NUCLEATED RED BLOOD CELLS 0.1 % (0.0-0.19); PLATELET COUNT (AUTO) 182 K/uL (130-400); RED CELL DISTRIBUTION WIDTH 14.6 % (11.0-15.5)
[2018-05-15 03:47] LABS: CREATININE 3.2 mg/dL (0.5-1.5); MAGNESIUM 2.8 mg/dL (1.80-2.40); POTASSIUM 4.7 mmol/L (3.5-5.1)
[2018-05-15] MEDS: NYSTATIN 100000 UNIT/ML 5ML UDCUP PO SCH ×3 (04:41→20:09)
[2018-05-15] MEDS: INSULIN HUMULIN R 100 UNIT/ML 3ML SQ SCH ×4 (05:30→20:31)
[2018-05-15] MEDS ORDERED: AMIODARONE HCL 300 MG in DEXTROSE 5%-WATER 250 ML IV SCH (06:00)
[2018-05-15 07:35] VITALS: BP 104/48
[2018-05-15] MEDS ORDERED: AMIODARONE HCL 50 MG/ML 3 ML VIAL IV STA (07:52)
[2018-05-15] MEDS: AMIODARONE HCL 200 MG TABLET PO SCH (09:10)
[2018-05-15] MEDS: CYANOCOBALAMIN (VITAMIN B-12) 1,000 MCG TABLET PO SCH (09:10)
[2018-05-15] MEDS: TAMSULOSIN HCL 0.4 MG CAP.ER.24H PO SCH ×2 (09:10→20:10)
[2018-05-15] MEDS: FLUOXETINE HCL 10 MG CAPSULE PO SCH (09:10)
[2018-05-15] MEDS: FOLIC ACID/VITAMIN B COMP W-C 1 MG CAPSULE PO SCH (09:10)
[2018-05-15] MEDS: ALLOPURINOL 100 MG TABLET PO SCH (09:10)
[2018-05-15] MEDS: ASPIRIN 81 MG EC TAB PO SCH (09:10)
[2018-05-15] MEDS: CLOPIDOGREL BISULFATE 75 MG TAB PO SCH (09:11)
[2018-05-15] MEDS: MIDODRINE HCL 5 MG TABLET PO SCH ×3 (09:11→20:09)
[2018-05-15] MEDS: PREDNISONE 20 MG TABLET PO SCH ×2 (09:11→20:10)
[2018-05-15] MEDS: ENOXAPARIN SODIUM 30 MG/0.3 ML SQ SCH (09:15)
--- NOTE | 2018-05-15 09:30 | NUR ---
REPOSITIONED FOR COMFORT. CALL LIGHT WITHIN REACH.
--- NOTE | 2018-05-15 11:25 | NUR ---
ASSISTED BACK TO BED FROM CHAIR AT BEDSIDE PER PT. REQUEST. CALL LIGHT WITHIN REACH. SPOUSE AT BEDSIDE.
[2018-05-15 11:29] VITALS: BP 85/45
--- NOTE | 2018-05-15 13:11 | NUR ---
DR. MILES IN ROOM SPEAKING WITH PT. UPDATED MD ON CURRENT MEDICATION REGIMEN AND EPISODES OF AFIB AND ORDERS RECEIVED FROM CARDIOLOGY; VERBALIZED UNDERSTANDING.
[2018-05-15 13:25] LABS: HEPATITIS A ANTIBODY IGM SEE SEPARATE REPORT (Negative); HEPATITIS B CORE IGM SEE SEPARATE RESULT (Negative); HEPATITIS Bs ANTIGEN SCREEN P SSR (Negative)
--- NOTE | 2018-05-15 14:12 | NUR ---
RD Follow-up Note Patient on Renal non-dialysis, 75gm CC diet with no report of GI distress. Patient with poor PO intake d/t mouth dryness, making it difficult to swallow as per patient. Patient requests chicken noodle soup or broth at all meals. Patient consumes ice chips throughout the day for relief. Patient LBM 05/13/18. Patient monitored labs: BUN 109, GFR 20, Glu 192, Alb 2.3, Ca 7.7, Mg 2.8. RD to add alleviating foods and monitor nutritional labs and PO intake. Patient encouraged to drink sufficient water. Please notify RD as nutritional concerns arise. Thank you. Addendum: 05/15/18 at [address] Amended: Links added.
--- NOTE | 2018-05-15 14:30 | NUR ---
REPOSITIONED FOR COMFORT. CALL LIGHT WITHIN REACH.
--- NOTE | 2018-05-15 15:12 | NUR ---
NOTIFIED Yocasta TIPTON RN, RE:[facility] RECONSULT; VERBALIZED UNDERSTANDING, NO NEW ORDERS RECEIVED AT THIS TIME.
[2018-05-15 16:17] VITALS: BP 97/49
[2018-05-15 19:00] VITALS: BP 97/56
[2018-05-15] MEDS: ALPRAZOLAM 0.25 MG TABLET PO SCH (20:09)
[2018-05-15] MEDS: MIRTAZAPINE 15 MG TABLET PO SCH (20:10)
[2018-05-15 23:00] VITALS: BP 98/55
[2018-05-15] MEDS: MAG HYDROX/AL HYDROX/SIMETH ES 30 ML SUSP UDCUP PO PRN (23:10)
[2018-05-16] MEDS: CEFTAZIDIME PENTAHYDRATE 2 GM/VIAL IVP SCH (02:25)
[2018-05-16 03:36] LABS: HEMATOCRIT 34.6 % (42-54); MEAN CORPUSCULAR HEMOGLOBIN 29.7 pg (27.0-33.0); MEAN CORPUSCULAR HGB CONC 33.7 g/dL (32.0-36.0); MEAN CORPUSCULAR VOLUME 88.2 fL (79-99); NUCLEATED RED BLOOD CELLS 0.1 % (0.0-0.19); PLATELET COUNT (AUTO) 172 K/uL (130-400); RED BLOOD CELL COUNT(AUTO) 3.93 MIL/uL (4.50-6.20); RED CELL DISTRIBUTION WIDTH 14.9 % (11.0-15.5); WHITE BLOOD COUNT (AUTO) 10.1 K/uL (4.8-10.8)
[2018-05-16 03:54] LABS: CREATININE 3.1 mg/dL (0.5-1.5); MAGNESIUM 2.9 mg/dL (1.80-2.40); POTASSIUM 4.4 mmol/L (3.5-5.1)
[2018-05-16 04:00] VITALS: BP 98/48
[2018-05-16] MEDS: NYSTATIN 100000 UNIT/ML 5ML UDCUP PO SCH ×3 (06:06→21:21)
[2018-05-16] MEDS: INSULIN HUMULIN R 100 UNIT/ML 3ML SQ SCH ×4 (06:08→21:00)
[2018-05-16 07:23] VITALS: BP 103/43
--- NOTE | 2018-05-16 10:15 | NUR ---
C CONSULT PATIENT ASSESSED ORDERED. NO PRESSURE ULCER IDENTIFIED. BLANCHABLE REDNESS NOTED NEAR COCCYX. ALLEVYN LIFE FOAM IN PLACE. WAFFLE MATTRESS IN USE. NO FURTHER [facility] RECOMMENDATIONS REQUIRED AT THIS TIME.
[2018-05-16] MEDS: ASPIRIN 81 MG EC TAB PO SCH (11:13)
[2018-05-16] MEDS: FOLIC ACID/VITAMIN B COMP W-C 1 MG CAPSULE PO SCH (11:13)
[2018-05-16] MEDS: PREDNISONE 20 MG TABLET PO SCH ×2 (11:13→21:18)
[2018-05-16] MEDS: FLUOXETINE HCL 10 MG CAPSULE PO SCH (11:13)
[2018-05-16] MEDS: TAMSULOSIN HCL 0.4 MG CAP.ER.24H PO SCH ×2 (11:13→21:18)
[2018-05-16] MEDS: AMIODARONE HCL 200 MG TABLET PO SCH (11:14)
[2018-05-16] MEDS: CLOPIDOGREL BISULFATE 75 MG TAB PO SCH (11:14)
[2018-05-16] MEDS: ALLOPURINOL 100 MG TABLET PO SCH (11:14)
[2018-05-16] MEDS: MIDODRINE HCL 5 MG TABLET PO SCH ×3 (11:14→21:18)
[2018-05-16] MEDS: CYANOCOBALAMIN (VITAMIN B-12) 1,000 MCG TABLET PO SCH (11:14)
[2018-05-16] MEDS: ENOXAPARIN SODIUM 30 MG/0.3 ML SQ SCH (11:15)
[2018-05-16 11:17] VITALS: BP 117/49
--- NOTE | 2018-05-16 13:21 | NUR ---
DC PLAN CM ORDER FOR SNF PLACEMENT. PATIENT HAVING SOB JUST TRYING TO SIT UP TO EAT. PATIENT DEBILITATED. HAFSA BUTTS CONSULTED DR. QUINONES FOR BIOPSY OF LYMPH NODE. STILL PENDING CONSULT AND REPLY WELL. LET CM DIRECTOR KNOW OF SNF ORDER AND PATIENT READINESS. SAID WILL SPEAK TO PRIMARY REGARDING ORDER. Addendum: 05/16/18 at 1324 by DORI MCGOVERN RN CM Amended: Links added.
--- NOTE | 2018-05-16 15:20 | NUR ---
taylor gamble office for dr. huang consult request.
[2018-05-16 16:17] VITALS: BP 104/46
--- NOTE | 2018-05-16 17:33 | NUR ---
DR. NYLA PONCE VISITED AND ASSESSED PATIENT.
[2018-05-16 19:47] VITALS: BP 102/49
[2018-05-16] MEDS: MIRTAZAPINE 15 MG TABLET PO SCH (21:18)
[2018-05-16] MEDS: ALPRAZOLAM 0.25 MG TABLET PO SCH (21:18)
[2018-05-16 23:59] VITALS: BP 107/52
[2018-05-17] MEDS: CEFTAZIDIME PENTAHYDRATE 2 GM/VIAL IVP SCH (02:45)
[2018-05-17 03:33] VITALS: BP 99/47
[2018-05-17] MEDS: MAG HYDROX/AL HYDROX/SIMETH ES 30 ML SUSP UDCUP PO PRN (03:36)
[2018-05-17 04:02] LABS: HEMATOCRIT 35.6 % (42-54); MEAN CORPUSCULAR HEMOGLOBIN 29.3 pg (27.0-33.0); MEAN CORPUSCULAR HGB CONC 33.5 g/dL (32.0-36.0); MEAN CORPUSCULAR VOLUME 87.6 fL (79-99); PLATELET COUNT (AUTO) 153 K/uL (130-400); RED BLOOD CELL COUNT(AUTO) 4.06 MIL/uL (4.50-6.20); RED CELL DISTRIBUTION WIDTH 15.1 % (11.0-15.5); WHITE BLOOD COUNT (AUTO) 11.5 K/uL (4.8-10.8)
[2018-05-17 04:18] LABS: CREATININE 3.1 mg/dL (0.5-1.5); POTASSIUM 4.7 mmol/L (3.5-5.1)
[2018-05-17] MEDS: NYSTATIN 100000 UNIT/ML 5ML UDCUP PO SCH ×3 (05:35→22:48)
[2018-05-17] MEDS: INSULIN HUMULIN R 100 UNIT/ML 3ML SQ SCH ×4 (05:35→21:00)
[2018-05-17 07:44] VITALS: BP 96/51
[2018-05-17] MEDS: ALLOPURINOL 100 MG TABLET PO SCH (09:34)
[2018-05-17] MEDS: PREDNISONE 20 MG TABLET PO SCH ×2 (09:34→20:46)
[2018-05-17] MEDS: FLUOXETINE HCL 10 MG CAPSULE PO SCH (09:34)
[2018-05-17] MEDS: MIDODRINE HCL 5 MG TABLET PO SCH ×3 (09:34→20:46)
[2018-05-17] MEDS: TAMSULOSIN HCL 0.4 MG CAP.ER.24H PO SCH ×2 (09:34→20:46)
[2018-05-17] MEDS: CLOPIDOGREL BISULFATE 75 MG TAB PO SCH (09:34)
[2018-05-17] MEDS: FOLIC ACID/VITAMIN B COMP W-C 1 MG CAPSULE PO SCH (09:35)
[2018-05-17] MEDS: CYANOCOBALAMIN (VITAMIN B-12) 1,000 MCG TABLET PO SCH (09:35)
[2018-05-17] MEDS: AMIODARONE HCL 200 MG TABLET PO SCH (09:35)
[2018-05-17] MEDS: ASPIRIN 81 MG EC TAB PO SCH (09:35)
[2018-05-17] MEDS: ENOXAPARIN SODIUM 30 MG/0.3 ML SQ SCH (09:36)
[2018-05-17 11:23] VITALS: BP 117/54
[2018-05-17 16:22] VITALS: BP 94/46
[2018-05-17 19:00] VITALS: BP 106/46
[2018-05-17] MEDS: MIRTAZAPINE 15 MG TABLET PO SCH (20:46)
[2018-05-17] MEDS: ALPRAZOLAM 0.25 MG TABLET PO SCH (20:46)
[2018-05-17 23:00] VITALS: BP 116/49
[2018-05-18 03:00] VITALS: BP 105/49
[2018-05-18 03:40] LABS: MEAN CORPUSCULAR HGB CONC 32.5 g/dL (32.0-36.0); MEAN CORPUSCULAR VOLUME 89.2 fL (79-99); PLATELET COUNT (AUTO) 144 K/uL (130-400); RED BLOOD CELL COUNT(AUTO) 4.04 MIL/uL (4.50-6.20); RED CELL DISTRIBUTION WIDTH 15.1 % (11.0-15.5); WHITE BLOOD COUNT (AUTO) 12.8 K/uL (4.8-10.8)
[2018-05-18 03:53] LABS: CREATININE 3.1 mg/dL (0.5-1.5); POTASSIUM 4.9 mmol/L (3.5-5.1)
[2018-05-18] MEDS: CEFTAZIDIME PENTAHYDRATE 2 GM/VIAL IVP SCH (03:56)
--- NOTE | 2018-05-18 04:08 | NUR ---
ASSESSMENT PATIENT RESTING IN BED. ALERT AND ORIENTED. NO C/O PAIN. SOB WITH EXERTION. TURNING PATIENT Q 2H AND WHEN UNCOMFORTABLE. PILLOWS PLACED TO DECREASE PRESSURE ON LOWER BACK. NO C/O PAIN WITH URINATION, NO DISTENTION NOTICED. DRAINING YELLOW URINE WITH SEDIMENT. IV TO L ARM FLUSHING WELL. DRESSING CDI. BATH GIVEN BY HOSPICE ART THERAPIST. DECREASED APPETITE. CHEWING ON ICE CHIPS TO HELP WITH DRY MOUTH. PATIENT SLEEPS WITH MOUTH OPEN CAUSING DRY MOUTH. ENCOURAGED USE OF I.S. WHILE AWAKE. PATIENT REACHED 1000. WILL CONTINUE TO MONITOR.
--- NOTE | 2018-05-18 04:10 | NUR ---
LAB NOTIFIED OF ELEVATED BUN. BUN IMPROVED. NOT NOTIFIED. CONSISTENT WITH PREVIOUS LABS.
[2018-05-18] MEDS: NYSTATIN 100000 UNIT/ML 5ML UDCUP PO SCH ×3 (04:57→21:17)
[2018-05-18] MEDS: INSULIN HUMULIN R 100 UNIT/ML 3ML SQ SCH ×4 (06:10→21:00)
[2018-05-18 07:40] VITALS: BP 119/50
[2018-05-18] MEDS: CLOPIDOGREL BISULFATE 75 MG TAB PO SCH (09:49)
[2018-05-18] MEDS: PREDNISONE 20 MG TABLET PO SCH ×2 (09:49→19:48)
[2018-05-18] MEDS: FOLIC ACID/VITAMIN B COMP W-C 1 MG CAPSULE PO SCH (09:49)
[2018-05-18] MEDS: FLUOXETINE HCL 10 MG CAPSULE PO SCH (09:49)
[2018-05-18] MEDS: TAMSULOSIN HCL 0.4 MG CAP.ER.24H PO SCH ×2 (09:49→19:48)
[2018-05-18] MEDS: CYANOCOBALAMIN (VITAMIN B-12) 1,000 MCG TABLET PO SCH (09:50)
[2018-05-18] MEDS: ASPIRIN 81 MG EC TAB PO SCH (09:50)
[2018-05-18] MEDS: ALLOPURINOL 100 MG TABLET PO SCH (09:50)
[2018-05-18] MEDS: ENOXAPARIN SODIUM 30 MG/0.3 ML SQ SCH (09:51)
[2018-05-18] MEDS: AMIODARONE HCL 200 MG TABLET PO SCH (09:51)
[2018-05-18] MEDS: MIDODRINE HCL 5 MG TABLET PO SCH ×3 (09:51→19:48)
[2018-05-18 11:18] VITALS: BP 95/51
[2018-05-18 16:43] VITALS: BP 94/39
[2018-05-18 19:32] VITALS: BP 106/51
[2018-05-18] MEDS: ALPRAZOLAM 0.25 MG TABLET PO SCH (19:48)
[2018-05-18] MEDS: MAG HYDROX/AL HYDROX/SIMETH ES 30 ML SUSP UDCUP PO PRN (19:48)
[2018-05-18] MEDS: MIRTAZAPINE 15 MG TABLET PO SCH (19:48)
[2018-05-18] MEDS: ZOLPIDEM TARTRATE 5 MG TAB PO PRN (21:17)
[2018-05-18 23:37] VITALS: BP 114/50
[2018-05-19] MEDS: CEFTAZIDIME PENTAHYDRATE 2 GM/VIAL IVP SCH (03:30)
[2018-05-19 03:38] LABS: MEAN CORPUSCULAR HEMOGLOBIN 29.2 pg (27.0-33.0); MEAN CORPUSCULAR HGB CONC 33.2 g/dL (32.0-36.0); MEAN CORPUSCULAR VOLUME 88.1 fL (79-99); PLATELET COUNT (AUTO) 139 K/uL (130-400); RED CELL DISTRIBUTION WIDTH 15.3 % (11.0-15.5)
[2018-05-19 03:45] VITALS: BP 105/48
[2018-05-19 04:06] LABS: ALBUMIN 2.3 g/dL (3.5-5.0); BILIRUBIN,TOTAL 0.3 mg/dL (0.2-1.0); CREATININE 3.3 mg/dL (0.5-1.5); MAGNESIUM 3.1 mg/dL (1.80-2.40); PHOSPHORUS 3.5 mg/dL (2.5-4.9); POTASSIUM 5.2 mmol/L (3.5-5.1)
[2018-05-19] MEDS: NYSTATIN 100000 UNIT/ML 5ML UDCUP PO SCH ×3 (05:02→20:25)
[2018-05-19] MEDS: HYDROCODONE/ACETAMINOPHEN 5/325 MG TAB PO PRN ×2 (05:02→12:40)
--- NOTE | 2018-05-19 05:30 | NUR ---
Dr Harley rounded on patient. Informed Cherri of Elevated Potassium, Mg, Elevated BUN, Cr, and Rise in WBC. Verbal orders to consult Infectious Disease.
[2018-05-19] MEDS: INSULIN HUMULIN R 100 UNIT/ML 3ML SQ SCH ×4 (06:39→20:29)
[2018-05-19 07:41] VITALS: BP 104/52
[2018-05-19] MEDS: AMIODARONE HCL 200 MG TABLET PO SCH (10:20)
[2018-05-19] MEDS: PREDNISONE 20 MG TABLET PO SCH ×2 (10:20→20:07)
[2018-05-19] MEDS: CLOPIDOGREL BISULFATE 75 MG TAB PO SCH (10:21)
[2018-05-19] MEDS: FLUOXETINE HCL 10 MG CAPSULE PO SCH (10:21)
[2018-05-19] MEDS: TAMSULOSIN HCL 0.4 MG CAP.ER.24H PO SCH ×2 (10:21→20:06)
[2018-05-19] MEDS: MIDODRINE HCL 5 MG TABLET PO SCH ×3 (10:21→20:06)
[2018-05-19] MEDS: FOLIC ACID/VITAMIN B COMP W-C 1 MG CAPSULE PO SCH (10:22)
[2018-05-19] MEDS: CYANOCOBALAMIN (VITAMIN B-12) 1,000 MCG TABLET PO SCH (10:22)
[2018-05-19] MEDS: ASPIRIN 81 MG EC TAB PO SCH (10:22)
[2018-05-19] MEDS: ALLOPURINOL 100 MG TABLET PO SCH (10:22)
[2018-05-19] MEDS: ENOXAPARIN SODIUM 30 MG/0.3 ML SQ SCH (10:23)
--- NOTE | 2018-05-19 11:10 | NUR ---
CALLED DR. THOMAS'S OFFICE TO INFORM RE:CARDIOLOGY ORDER FOR BIOPSY. LEFT MESSAGE AT NURSE'S STATION, PER RECORDED VOICEMAIL; AWAITING RESPONSE.
[2018-05-19 12:02] VITALS: BP 117/66
[2018-05-19 13:49] LABS: APPEARANCE,URINE Turbid (CLEAR); BILIRUBIN,URINE Negative (NEGATIVE); COLOR,URINE Yellow (YELLOW); GLUCOSE, URINE (UA) Negative (NEGATIVE); KETONES,URINE Negative (NEGATIVE); LEUKOCYTE ESTERASE ,URINE Large (NEGATIVE); NITRATE,URINE Negative (NEGATIVE); OCCULT BLOOD,URINE Moderate (NEGATIVE); PROTEIN,URINE POS 2+ (NEGATIVE); UROBILINOGEN,URINE 0.2 mg/dL (0.2-1.0)
[2018-05-19 14:27] LABS: BACTERIA,URINE Few /HPF (None Seen); RBC,URINE 0-1 /HPF (0-1); YEAST,URINE BUDDING Moderate /HPF (None Seen)
[2018-05-19 14:28] LABS: SQUAMOUS EPITHELIAL CELL,UR Rare /HPF (0-2); URIC ACID CRYSTALS,URINE Few /LPF (None Seen)
--- NOTE | 2018-05-19 15:04 | NUR ---
DR. Marc SCOTT IN ROOM SPEAKING WITH PT., FOR CONSULT.
--- NOTE | 2018-05-19 15:24 | NUR ---
SPOKE WITH ORIANA RUSSELL, RESIDENT FOR DR. SHARIF, AT NURSE'S STATION. INFORMED OF CARDIAC CLEARANCE AND MEDICAL CLEARANCE FOR BIOPSY, VERBALIZED UNDERSTANDING AND STATES WILL NOTIFY DR. ATKINSON.
[2018-05-19 16:15] VITALS: BP 114/54
[2018-05-19] MEDS: MEROPENEM 500 MG VIAL IVP SCH (18:21)
[2018-05-19 19:41] VITALS: BP 110/54
[2018-05-19] MEDS: MIRTAZAPINE 15 MG TABLET PO SCH (20:06)
[2018-05-19] MEDS: ALPRAZOLAM 0.25 MG TABLET PO SCH (20:06)
[2018-05-19 23:34] VITALS: BP 109/57
[2018-05-20 04:00] VITALS: BP 113/54
[2018-05-20 04:24] LABS: HEMATOCRIT 35.9 % (42-54); MEAN CORPUSCULAR HEMOGLOBIN 29.3 pg (27.0-33.0); MEAN CORPUSCULAR VOLUME 88.8 fL (79-99); NUCLEATED RED BLOOD CELLS 0.1 % (0.0-0.19); PLATELET COUNT (AUTO) 121 K/uL (130-400); RED BLOOD CELL COUNT(AUTO) 4.05 MIL/uL (4.50-6.20); RED CELL DISTRIBUTION WIDTH 15.3 % (11.0-15.5); WHITE BLOOD COUNT (AUTO) 15.7 K/uL (4.8-10.8)
[2018-05-20 04:29] LABS: CREATININE 3.7 mg/dL (0.5-1.5); POTASSIUM 5.5 mmol/L (3.5-5.1)
[2018-05-20] MEDS: MEROPENEM 500 MG VIAL IVP SCH ×2 (06:26→17:00)
[2018-05-20] MEDS: INSULIN HUMULIN R 100 UNIT/ML 3ML SQ SCH ×4 (06:26→20:56)
[2018-05-20] MEDS: NYSTATIN 100000 UNIT/ML 5ML UDCUP PO SCH ×4 (06:26→23:59)
[2018-05-20 08:20] VITALS: BP 106/54
[2018-05-20] MEDS: ALLOPURINOL 100 MG TABLET PO SCH (09:57)
[2018-05-20] MEDS: PREDNISONE 20 MG TABLET PO SCH ×2 (09:57→20:29)
[2018-05-20] MEDS: MIDODRINE HCL 5 MG TABLET PO SCH ×3 (09:57→20:29)
[2018-05-20] MEDS: FOLIC ACID/VITAMIN B COMP W-C 1 MG CAPSULE PO SCH (09:57)
[2018-05-20] MEDS: CLOPIDOGREL BISULFATE 75 MG TAB PO SCH (09:57)
[2018-05-20] MEDS: AMIODARONE HCL 200 MG TABLET PO SCH (09:57)
[2018-05-20] MEDS: FLUOXETINE HCL 10 MG CAPSULE PO SCH (09:57)
[2018-05-20] MEDS: TAMSULOSIN HCL 0.4 MG CAP.ER.24H PO SCH ×2 (09:57→20:29)
[2018-05-20] MEDS: CYANOCOBALAMIN (VITAMIN B-12) 1,000 MCG TABLET PO SCH (09:57)
[2018-05-20] MEDS: ASPIRIN 81 MG EC TAB PO SCH (09:57)
[2018-05-20] MEDS: ENOXAPARIN SODIUM 30 MG/0.3 ML SQ SCH (09:58)
[2018-05-20 11:57] VITALS: BP 107/56
--- NOTE | 2018-05-20 14:29 | NUR ---
RD Follow-Up Note Patient very tired at time of visit. Patient was able to report poor appetite - Patient with poor appetite since admit. Current intake 25-50% as per EMR. Patient requests chocolate Glucerna and currently receiving. Promod discontinued secondary to increased serum Creatine;RD to continue to monitor. Patient LBM 05/18/18. Patient monitored labs: K 5.5, BUN 113, Cr 3.7, GFR 17, Glu 116, Ca 8.4. RD to continue to monitor. Please notify RD as nutritional concerns arise. Thank you. Addendum: 05/20/18 at [address] Amended: Links added.
[2018-05-20] MEDS ORDERED: SODIUM POLYSTYRENE SULFONATE 15 GM/60 ML ML PO SCH (14:30)
[2018-05-20 15:19] LABS: HEMATOCRIT 37.2 % (42-54); MEAN CORPUSCULAR HEMOGLOBIN 28.9 pg (27.0-33.0); MEAN CORPUSCULAR HGB CONC 32.4 g/dL (32.0-36.0); MEAN CORPUSCULAR VOLUME 89.3 fL (79-99); PLATELET COUNT (AUTO) 135 K/uL (130-400); RED BLOOD CELL COUNT(AUTO) 4.17 MIL/uL (4.50-6.20); RED CELL DISTRIBUTION WIDTH 15.3 % (11.0-15.5); WHITE BLOOD COUNT (AUTO) 17.7 K/uL (4.8-10.8)
[2018-05-20 15:34] LABS: CREATININE 3.9 mg/dL (0.5-1.5); POTASSIUM 5.6 mmol/L (3.5-5.1)
[2018-05-20] MEDS ORDERED: PHARMACY COMMUNICATION MISC SCH ×2 (15:45→16:15)
[2018-05-20 16:29] VITALS: BP 121/50
--- NOTE | 2018-05-20 16:38 | NUR ---
RECEIVED CALL FROM DR. CHUN. INFORMED OF CT HEAD RESULTS, VERBALIZED UNDERSTANDING. NO NEW ORDERS RECEIVED.
[2018-05-20] MEDS: ONDANSETRON HCL 4 MG/2 ML VIAL IVP PRN (18:08)
--- NOTE | 2018-05-20 18:15 | NUR ---
DR. Kathie MILES IN ROOM SPEAKING WITH PT. AND PT.'S SPOUSE AT BEDSIDE Re:RISKS AND BENEFITS OF HD. QUESTIONS ANSWERED BY DR. MILES.
[2018-05-20 19:36] VITALS: BP 100/53
[2018-05-20] MEDS: MIRTAZAPINE 15 MG TABLET PO SCH (20:29)
[2018-05-20] MEDS: ALPRAZOLAM 0.25 MG TABLET PO SCH (20:29)
[2018-05-20 23:48] VITALS: BP 108/56
[2018-05-21] VITALS (9 sets, daily range): BP systolic 86–111; BP diastolic 51–66
[2018-05-21 03:53] LABS: HEMATOCRIT 37.6 % (42-54); MEAN CORPUSCULAR HEMOGLOBIN 29.1 pg (27.0-33.0); MEAN CORPUSCULAR HGB CONC 32.8 g/dL (32.0-36.0); MEAN CORPUSCULAR VOLUME 88.5 fL (79-99); NUCLEATED RED BLOOD CELLS 0.1 % (0.0-0.19); PLATELET COUNT (AUTO) 114 K/uL (130-400); RED BLOOD CELL COUNT(AUTO) 4.24 MIL/uL (4.50-6.20); RED CELL DISTRIBUTION WIDTH 15.5 % (11.0-15.5); WHITE BLOOD COUNT (AUTO) 18.6 K/uL (4.8-10.8)
[2018-05-21 04:06] LABS: CREATININE 4.1 mg/dL (0.5-1.5); POTASSIUM 5.8 mmol/L (3.5-5.1)
[2018-05-21] MEDS: MEROPENEM 500 MG VIAL IVP SCH ×2 (05:41→16:56)
[2018-05-21] MEDS: INSULIN HUMULIN R 100 UNIT/ML 3ML SQ SCH ×4 (05:42→21:00)
[2018-05-21] MEDS: NYSTATIN 100000 UNIT/ML 5ML UDCUP PO SCH ×3 (05:42→21:30)
--- NOTE | 2018-05-21 08:30 | NUR ---
ASSESSMENT PT IS RESTING, AROUSABLE TO NAME AND IS NOW AAOX4 .DENIES CP DENIES SOB DENIES NV. STATES HE FEELS VERY TIRES. AM MEDS GIVEN WITH APPLESAUCE, NO CHOKING NO GAGGING NOTED. HOB UP AT 40 DEGREES FOR THIS. STATES HE WANTS TO REST NOW. SIDE RAILS UP X4 DOOR AJAR BLINDS OPEN.
[2018-05-21] MEDS: TAMSULOSIN HCL 0.4 MG CAP.ER.24H PO SCH ×2 (08:36→21:29)
[2018-05-21] MEDS: PREDNISONE 20 MG TABLET PO SCH ×2 (08:36→21:28)
[2018-05-21] MEDS: FLUOXETINE HCL 10 MG CAPSULE PO SCH (08:36)
[2018-05-21] MEDS: ASPIRIN 81 MG EC TAB PO SCH (08:36)
[2018-05-21] MEDS: MIDODRINE HCL 5 MG TABLET PO SCH ×3 (08:36→21:28)
[2018-05-21] MEDS: ALLOPURINOL 100 MG TABLET PO SCH (08:36)
[2018-05-21] MEDS: AMIODARONE HCL 200 MG TABLET PO SCH (08:36)
[2018-05-21] MEDS: FOLIC ACID/VITAMIN B COMP W-C 1 MG CAPSULE PO SCH (08:36)
[2018-05-21] MEDS: CLOPIDOGREL BISULFATE 75 MG TAB PO SCH (08:37)
[2018-05-21] MEDS: CYANOCOBALAMIN (VITAMIN B-12) 1,000 MCG TABLET PO SCH (08:37)
[2018-05-21] MEDS: ENOXAPARIN SODIUM 30 MG/0.3 ML SQ SCH (08:37)
[2018-05-21] MEDS ORDERED: VELTASSA 8.4 GM PO SCH (09:00)
--- NOTE | 2018-05-21 09:00 | NUR ---
BM ACHIEVED FRANKY CARE RENDERED. NO SKIN BREAKDOWN NOTED. PATIENT STATES HE WANTS TO REST HE DID NOT SLEEP LAST NIGHT. HOB UP AT 30 DEGREES, SIDE RAILS UP, CALL LIGHT WITHIN REACH.
--- NOTE | 2018-05-21 12:00 | NUR ---
DR MILES ROUNDED ORDERS RECEIVED. PLAN FOR ALICJA VS PERMACATH TODAY AND DIALYSIS TODAY. DIALYSIS NURSE AWARE.
[2018-05-21 12:13] LABS: INR 1.06 (0.85-1.15); PROTHROMBIN TIME 11.1 SEC (9.6-11.6)
--- NOTE | 2018-05-21 13:33 | NUR ---
DR ATKINSON ROUNDED SAW PATIENT. STATES PATIENT IS NOT CLEARED FOR ANY BIOPSY. BIOPSY CAN BE DONE OUTPATIENT ONCE PATIENT IS DC FROM HOSPITAL.
--- NOTE | 2018-05-21 14:30 | NUR ---
DOWN TO POWER PROJECT MANAGER VIA BED FOR DIALYSIS CATHETER PLACEMENT
[2018-05-21] MEDS ORDERED: LIDOCAINE HCL 1% MDV 50ML VIAL ONE (14:35)
--- NOTE | 2018-05-21 15:40 | NUR ---
RETURNED FROM FELT HAT STEAMER VIA BED. AAOX4, RESTING IN BED. RIGHT UPPER CHEST ALICJA NOTED. DIALYSIS TO BE DONE TODAY.
--- NOTE | 2018-05-21 16:45 | NUR ---
DIALYSIS AT BEDSIDE
[2018-05-21] MEDS ORDERED: ALBUMIN (HUMAN) 25% 200 ML IV ONE (16:50)
[2018-05-21 16:51] LABS: HEMOGLOBIN A1C 7.3 % (4.0-6.0)
[2018-05-21 16:57] LABS: ALBUMIN 2.1 g/dL (3.5-5.0)
[2018-05-21] MEDS ORDERED: ACETAMINOPHEN 325 MG TAB PO PRN (17:00)
[2018-05-21] MEDS ORDERED: 0.9% SODIUM CHLORIDE 1000 ML IV BAG IV PRN (17:00)
[2018-05-21] MEDS ORDERED: SODIUM CHLORIDE 0.9% 1000ML 1,000 ML IV PRN (17:00)
[2018-05-21] MEDS ORDERED: HEPARIN SODIUM 5000UNIT/ML 1ML VIAL IJ PRN (17:00)
[2018-05-21] MEDS ORDERED: LIDOCAINE HCL-MPF 1% 2ML VIAL IJ PRN (17:00)
[2018-05-21] MEDS ORDERED: NITROGLYCERIN 0.4 MG SL TAB SL PRN (17:00)
[2018-05-21 17:08] LABS: % IRON SATURATION 22.3 % (30-44)
[2018-05-21] MEDS: MIRTAZAPINE 15 MG TABLET PO SCH (21:29)
[2018-05-21] MEDS: ALPRAZOLAM 0.25 MG TABLET PO SCH (21:29)
[2018-05-22] VITALS (7 sets, daily range): BP systolic 92–111; BP diastolic 46–55
[2018-05-22 03:39] LABS: HEMATOCRIT 31.5 % (42-54); MEAN CORPUSCULAR HEMOGLOBIN 29.7 pg (27.0-33.0); MEAN CORPUSCULAR HGB CONC 33.5 g/dL (32.0-36.0); MEAN CORPUSCULAR VOLUME 88.7 fL (79-99); NUCLEATED RED BLOOD CELLS 0.1 % (0.0-0.19); PLATELET COUNT (AUTO) 83 K/uL (130-400); RED BLOOD CELL COUNT(AUTO) 3.55 MIL/uL (4.50-6.20); RED CELL DISTRIBUTION WIDTH 15.2 % (11.0-15.5); WHITE BLOOD COUNT (AUTO) 18.3 K/uL (4.8-10.8)
[2018-05-22 03:49] LABS: CREATININE 3.8 mg/dL (0.5-1.5); POTASSIUM 5.2 mmol/L (3.5-5.1)
[2018-05-22] MEDS: MAG HYDROX/AL HYDROX/SIMETH ES 30 ML SUSP UDCUP PO PRN (04:37)
[2018-05-22] MEDS: MEROPENEM 500 MG VIAL IVP SCH ×2 (04:37→17:25)
[2018-05-22] MEDS: NYSTATIN 100000 UNIT/ML 5ML UDCUP PO SCH ×4 (04:37→20:31)
[2018-05-22] MEDS: INSULIN HUMULIN R 100 UNIT/ML 3ML SQ SCH ×4 (06:22→20:52)
[2018-05-22] MEDS: ASPIRIN 81 MG EC TAB PO SCH (07:26)
[2018-05-22] MEDS: CYANOCOBALAMIN (VITAMIN B-12) 1,000 MCG TABLET PO SCH (07:26)
[2018-05-22] MEDS: TAMSULOSIN HCL 0.4 MG CAP.ER.24H PO SCH ×2 (07:26→20:30)
[2018-05-22] MEDS: ENOXAPARIN SODIUM 30 MG/0.3 ML SQ SCH (07:26)
[2018-05-22] MEDS: ALLOPURINOL 100 MG TABLET PO SCH (07:26)
[2018-05-22] MEDS: FOLIC ACID/VITAMIN B COMP W-C 1 MG CAPSULE PO SCH (07:27)
[2018-05-22] MEDS: PREDNISONE 20 MG TABLET PO SCH ×2 (07:27→20:30)
[2018-05-22] MEDS: FLUOXETINE HCL 10 MG CAPSULE PO SCH (07:27)
[2018-05-22] MEDS: CLOPIDOGREL BISULFATE 75 MG TAB PO SCH (07:27)
[2018-05-22] MEDS: MIDODRINE HCL 5 MG TABLET PO SCH ×3 (07:27→20:30)
[2018-05-22] MEDS: AMIODARONE HCL 200 MG TABLET PO SCH (07:27)
--- NOTE | 2018-05-22 08:00 | NUR ---
ASSESSMENT PT IS AAOX4 DENIES CP DENIES SOB DENIES NV RESTING IN BED. NO COMPLAINTS. AM MEDS GIVEN WHOLE WITH APPLESAUCE, NO CHOKING NO GAGGING NOTED. PENDING DIALYSIS TODAY. SIDE RAILS UP X4 CALL LIGHT WITHIN REACH.
--- NOTE | 2018-05-22 11:12 | NUR ---
[facility] SURGERY SAID NO TO BIOPSY PATIENT TO UNSTABLE. PATIENT NOW [facility] FIRST TREATMENT 05/21. PATIENT STILL NOT STABLE TO TRANSFER TO LOWER LEVEL OF CARE. DR. THOMAS NOT IN AGREEMENT FOR FESTUS. GILDA WILL CONTINUE TO MONITOR. Addendum: 05/22/18 at 1113 by DORI MCGOVERN RN CM Amended: Links added.
--- NOTE | 2018-05-22 14:40 | NUR ---
DIALYSIS AT BEDSIDE
--- NOTE | 2018-05-22 15:00 | NUR ---
[facility] CONSULT UNABLE TO ASSESS PATIENT; HE IS CURRENTLY RECEIVING DIALYSIS TREATMENT; WILL ATTEMPT TO REASSESS AT A LATER TIME. Addendum: 05/22/18 at 1502 by AMADNEEP CANTRELL LVN Amended: Links added.
[2018-05-22] MEDS: MIRTAZAPINE 15 MG TABLET PO SCH (20:30)
[2018-05-22] MEDS: ZOLPIDEM TARTRATE 5 MG TAB PO PRN (20:31)
[2018-05-22] MEDS: ALPRAZOLAM 0.25 MG TABLET PO SCH (20:31)
[2018-05-23 03:30] VITALS: BP 102/58
[2018-05-23 04:10] LABS: HEMATOCRIT 33.1 % (42-54); MEAN CORPUSCULAR HEMOGLOBIN 29.4 pg (27.0-33.0); MEAN CORPUSCULAR HGB CONC 32.2 g/dL (32.0-36.0); MEAN CORPUSCULAR VOLUME 91.3 fL (79-99); PLATELET COUNT (AUTO) 69 K/uL (130-400); RED BLOOD CELL COUNT(AUTO) 3.63 MIL/uL (4.50-6.20); RED CELL DISTRIBUTION WIDTH 15.8 % (11.0-15.5); WHITE BLOOD COUNT (AUTO) 18.4 K/uL (4.8-10.8)
[2018-05-23 04:20] LABS: CREATININE 3.5 mg/dL (0.5-1.5); POTASSIUM 4.7 mmol/L (3.5-5.1)
[2018-05-23] MEDS: NYSTATIN 100000 UNIT/ML 5ML UDCUP PO SCH ×3 (05:29→22:00)
[2018-05-23] MEDS: MEROPENEM 500 MG VIAL IVP SCH ×3 (05:31→21:53)
[2018-05-23 07:45] VITALS: BP 110/54
[2018-05-23 08:24] LABS: HEPATITIS Bs ANTIGEN SCREEN P Negative (Negative)
--- NOTE | 2018-05-23 09:00 | NUR ---
AM ASSESSMENT PT LAYING IN BED. RESTLESS. PT SHOUTING, "HELP." DENIES NEEDING ANYTHING WHEN ASKED HOW TO BE HELPED. PT STATES, "I WANT TO DIES, I'VE BEEN IN THE HOSPITAL FOR 6 MOS." REINFORCED PT HAS BEEN IN HOSPITAL LONGER THAN ANTICIPATED, BUT NOT 6 MONTHS. O2 NC @ 3L. SOB ON EXERTION. NO DISTRESS NOTED. DENIES CHEST PAIN OR DISCOMFORT. DENIES PALPITATIONS. C/O OF GENERALIZED PAIN. PO PAIN MEDICATION GIVEN @ THIS TIME. TELE: SR 70s. NO N/V AND/OR DIARRHEA. 16 FR OSEI [address]HETER IN PLACE, PATENT & DRAINING. BEDREST. NO HEMODIALYSIS TODAY. PT TO RECEIVED 3rd HD TREATMENT TOMORROW. INSTRUCTED TO CALL FOR ASSISTANCE. CALL UMER W/IN REACH.
[2018-05-23] MEDS: ALLOPURINOL 100 MG TABLET PO SCH (10:26)
[2018-05-23] MEDS: ENOXAPARIN SODIUM 30 MG/0.3 ML SQ SCH (10:27)
[2018-05-23] MEDS: TAMSULOSIN HCL 0.4 MG CAP.ER.24H PO SCH ×2 (10:27→21:53)
[2018-05-23] MEDS: FLUOXETINE HCL 10 MG CAPSULE PO SCH (10:27)
[2018-05-23] MEDS: MIDODRINE HCL 5 MG TABLET PO SCH ×3 (10:28→21:59)
[2018-05-23] MEDS: AMIODARONE HCL 200 MG TABLET PO SCH (10:28)
[2018-05-23] MEDS: HYDROCODONE/ACETAMINOPHEN 5/325 MG TAB PO PRN (10:28)
[2018-05-23] MEDS: PREDNISONE 20 MG TABLET PO SCH ×2 (10:28→21:53)
[2018-05-23] MEDS: MEGESTROL 400 MG/10 ML UDCUP PO SCH (10:29)
[2018-05-23 11:48] VITALS: BP 97/54
[2018-05-23] MEDS ORDERED: LORAZEPAM 2 MG/ML 1 ML VIAL IVP PRN (14:15)
--- NOTE | 2018-05-23 14:25 | NUR ---
REPORT GIVEN TO JEWELS HAYDEN AND PT TO BE TRANSFERRED TO ROOM 318. PERSONAL BELONGINGS WITH PATIENT. AT BEDSIDE.
--- NOTE | 2018-05-23 14:41 | NUR ---
RD Follow-up Note Patient remains with poor PO;Megace and Glucerna in place. RD was also able to updated patient food preferences with goal to increase PO intake. Patient LBM 05/21/18. Patient monitored labs:Cl 98, BUN 71, Cr 3.5, GFR 18, Ca 7.8. RD to continue to monitor. Please notify RD as nutritional concerns arise. Thank you. Addendum: 05/23/18 at [address] RD Amended: Links added.
--- NOTE | 2018-05-23 14:42 | NUR ---
NYSTATIN MEDICATION (DUE AT 1400) NOT AVAILABLE --INSURANCE COORDINATOR RAJNI WILL CALL WHEN AVAILABLE.
[2018-05-23 16:00] VITALS: BP 100/54
[2018-05-23 19:20] VITALS: BP 111/50
[2018-05-23] MEDS: ALPRAZOLAM 0.25 MG TABLET PO SCH (21:53)
[2018-05-23] MEDS: MIRTAZAPINE 15 MG TABLET PO SCH (21:53)
[2018-05-24 00:07] VITALS: BP 110/55
[2018-05-24 04:30] VITALS: BP 99/50
[2018-05-24 05:01] LABS: HEMATOCRIT 31.3 % (42-54); MEAN CORPUSCULAR HEMOGLOBIN 29.7 pg (27.0-33.0); MEAN CORPUSCULAR HGB CONC 33.8 g/dL (32.0-36.0); MEAN CORPUSCULAR VOLUME 87.9 fL (79-99); NUCLEATED RED BLOOD CELLS 0.1 % (0.0-0.19); PLATELET COUNT (AUTO) 36 K/uL (130-400); RED BLOOD CELL COUNT(AUTO) 3.56 MIL/uL (4.50-6.20); RED CELL DISTRIBUTION WIDTH 15.8 % (11.0-15.5); WHITE BLOOD COUNT (AUTO) 18.2 K/uL (4.8-10.8)
[2018-05-24 05:26] LABS: CREATININE 4.7 mg/dL (0.5-1.5); POTASSIUM 5.3 mmol/L (3.5-5.1)
[2018-05-24] MEDS: NYSTATIN 100000 UNIT/ML 5ML UDCUP PO SCH ×2 (06:35→17:05)
[2018-05-24 08:00] VITALS: BP 103/53
[2018-05-24] MEDS: FLUOXETINE HCL 10 MG CAPSULE PO SCH (09:00)
[2018-05-24] MEDS: ENOXAPARIN SODIUM 30 MG/0.3 ML SQ SCH (09:00)
[2018-05-24] MEDS: ALLOPURINOL 100 MG TABLET PO SCH (09:00)
[2018-05-24] MEDS: TAMSULOSIN HCL 0.4 MG CAP.ER.24H PO SCH (09:00)
[2018-05-24] MEDS: PREDNISONE 20 MG TABLET PO SCH (09:00)
[2018-05-24] MEDS: MEGESTROL 400 MG/10 ML UDCUP PO SCH ×2 (09:00→17:05)
[2018-05-24] MEDS: AMIODARONE HCL 200 MG TABLET PO SCH ×2 (09:00→17:04)
[2018-05-24] MEDS: MEROPENEM 500 MG VIAL IVP SCH (09:00)
[2018-05-24] MEDS: MIDODRINE HCL 5 MG TABLET PO SCH ×2 (09:00→17:04)
[2018-05-24] MEDS ORDERED: FLUCONAZOLE 200 MG/NS 100 ML 100 ML IV SCH (11:30)
[2018-05-24 12:00] VITALS: BP 93/52
[2018-05-24] MEDS: ALBUMIN (HUMAN) 25% 100 ML IV PRN ×2 (17:02→17:03)
--- NOTE | 2018-05-24 17:07 | NUR ---
ALBUMIN AND HEPARIN These two medications administered during hemodialysis today by hemodialysis nurse. Documented at this time in eMAR.
--- NOTE | 2018-05-24 17:51 | NUR ---
CALL TO DR. THOMAS T/C PLACED TO DR. THOMAS, INFORMED ABOUT CHANGE IN PT'S STATUS, CATRACHO Martinez SPOKE WITH DR. THOMAS FOR MORE INFORMATION.
--- NOTE | 2018-05-24 18:45 | NUR ---
NURSING NOTE Received message from nursing assistants that patient did not look good. Primary nurse went to bedside and patient was lying in bed, with at bedside and other staff members preparing to start CPR as wanted and CPR was being started. Dr. Harley was notified of patient having no pulse, being pale, and not breathing. Dr. Harley asked to talk to patient's and a decision was made to stop resuscitation measures and orders received to make patient DNR/DNI and to stop resuscitation measures. Patient was pronounced by ER physician. Post-mortem care done.
== END 2018-05-24 17:56 | disposition expired | DRG 853 ==
LOC: EDH 07:37 → EDHIP 13:21 → 3CH 18:38 → 2BH 04-24 14:30 → 2AH 04-27 16:25 → 3CH 05-23 15:03
PROVIDERS: ADMIT Internal Medicine; ATTEND Internal Medicine
PROC: 02BN0ZX Excision of Pericardium, Open Approach, Diagnostic (ICD-10-PCS; 2018-04-24)
PROC: 0W9D0ZZ Drainage of Pericardial Cavity, Open Approach (ICD-10-PCS; principal; 2018-04-24 12:35)
PROC: 0W9B3ZZ Drainage of Left Pleural Cavity, Percutaneous Approach (ICD-10-PCS; 2018-05-04)
PROC: 07B63ZX Excision of Left Axillary Lymphatic, Percutaneous Approach, Diagnostic (ICD-10-PCS; 2018-05-05)
PROC: 0W9B3ZZ Drainage of Left Pleural Cavity, Percutaneous Approach (ICD-10-PCS; 2018-05-09)
PROC: 5A1D70Z Performance of Urinary Filtration, Intermittent, Less than 6 Hours Per Day (ICD-10-PCS; 2018-05-21)
PROC: 5A1D70Z Performance of Urinary Filtration, Intermittent, Less than 6 Hours Per Day (ICD-10-PCS; 2018-05-22)
PROC: 5A1D70Z Performance of Urinary Filtration, Intermittent, Less than 6 Hours Per Day (ICD-10-PCS; 2018-05-24)
PROC: 5A12012 Performance of Cardiac Output, Single, Manual (ICD-10-PCS; 2018-05-24)
DX: A41.9 Sepsis, unspecified organism (principal); N17.0 Acute kidney failure with tubular necrosis; E43 Unspecified severe protein-calorie malnutrition; J18.9 Pneumonia, unspecified organism; J96.91 Respiratory failure, unspecified with hypoxia; N18.6 End stage renal disease; I31.3 Pericardial effusion (noninflammatory); E87.1 Hypo-osmolality and hyponatremia; D62 Acute posthemorrhagic anemia; G93.40 Encephalopathy, unspecified; I16.9 Hypertensive crisis, unspecified; I47.1 Supraventricular tachycardia; J98.11 Atelectasis; N13.8 Other obstructive and reflux uropathy; N39.0 Urinary tract infection, site not specified; R18.8 Other ascites; R64 Cachexia; I13.2 Hypertensive heart and chronic kidney disease with heart failure and with stage 5 chronic kidney disease, or end stage renal disease; I31.4 Cardiac tamponade; B96.5 Pseudomonas (aeruginosa) (mallei) (pseudomallei) as the cause of diseases classified elsewhere; D69.6 Thrombocytopenia, unspecified; E11.42 Type 2 diabetes mellitus with diabetic polyneuropathy; E11.51 Type 2 diabetes mellitus with diabetic peripheral angiopathy without gangrene; E77.8 Other disorders of glycoprotein metabolism; E78.5 Hyperlipidemia, unspecified; E86.0 Dehydration; E87.5 Hyperkalemia; F10.10 Alcohol abuse, uncomplicated; F32.9 Major depressive disorder, single episode, unspecified; F41.1 Generalized anxiety disorder; F43.22 Adjustment disorder with anxiety; G47.00 Insomnia, unspecified; I25.119 Atherosclerotic heart disease of native coronary artery with unspecified angina pectoris; I25.5 Ischemic cardiomyopathy; I46.9 Cardiac arrest, cause unspecified; I48.0 Paroxysmal atrial fibrillation; I50.9 Heart failure, unspecified; M19.90 Unspecified osteoarthritis, unspecified site; E11.22 Type 2 diabetes mellitus with diabetic chronic kidney disease; I95.1 Orthostatic hypotension; I95.3 Hypotension of hemodialysis; N40.1 Benign prostatic hyperplasia with lower urinary tract symptoms; R62.7 Adult failure to thrive; Z74.01 Bed confinement status; Z79.899 Other long term (current) drug therapy; Z82.3 Family history of stroke; Z87.440 Personal history of urinary (tract) infections; Z91.15 Patient's noncompliance with renal dialysis; Z95.5 Presence of coronary angioplasty implant and graft; Z99.2 Dependence on renal dialysis; Z79.84 Long term (current) use of oral hypoglycemic drugs; Y90.9 Presence of alcohol in blood, level not specified
CPT/HCPCS: 32555; 36415; 36556; 36600; 38505; 70450; 71045; 71250; 74150; 74176; 76700; 76770; 76882; 76942; 77001; 78580; 80048; 80053; 80061; 80074; 81001; 82040; 82140; 82150; 82435; 82533; 82550; 82575; 82728; 82803; 82945; 82947; 82948; 83036; 83540; 83550; 83605; 83615; 83690; 83735; 83874; 83880; 83883; 83986; 84100; 84132; 84155; 84156; 84157; 84165; 84166; 84295; 84443; 84478; 84484; 84520; 84550; 85018; 85025; 85027; 85378; 85610; 85730; 86038; 86140; 86160; 86255; 86325; 86701; 86704; 86706; 86850; 86900; 86901; 86922; 87071; 87076; 87077; 87088; 87103; 87116; 87186; 87205; 87206; 87210; 87340; 87390; 87493; 87520; 88108; 88305; 88307; 89051; 90935; 93005; 93306; 93308; 94640; 94660; 94664; 94667; 94668; 97039; A4215; A4218; A4344; A7048; A9540; C1729; C1752; G0378; J0171; J0282; J0330; J0461; J0690; J0696; J0713; J1160; J1265; J1450; J1644; J1650; J1815; J1940; J2175; J2185; J2250; J2370; J2405; J2710; J2920; J3010; J3475; J3490; J7030; J7040; J7060; P9046; P9047; Q9963